=== PATIENT | male | born 1980 | race Caucasian/White ===

== ENCOUNTER → 2019-04-02 17:51 | Outpatient (CLI) | payer OTHER, SELFPAY ==
--- NOTE | 2019-04-02 | DI.MRI.S_ITS ---
PROCEDURE: MR KNEE RT WO CON INDICATIONS: Right knee pain and instability TECHNIQUE: Noncontrast sagittal PD fast spin echo and T2 fast spin echo with fat saturation, sagittal 3-D FLASH with fat saturation; coronal T1 spin echo and PD fast spin echo with fat saturation, and axial PD fast spin echo with fat saturation through the knee. COMPARISON: None. FINDINGS: Image quality: Excellent. Menisci: There is minimal amorphous high signal intensity within the medial meniscal body and posterior horn, without articular surface extension, indicating meniscal degeneration. There is moderate linear branching T2 signal intensity within the lateral meniscal body and posterior horn, without definite articular surface extension. Cruciate ligaments: The anterior and posterior cruciate ligaments appear intact. Medial structures: The medial collateral ligament appears intact. Visualized portions of the pes anserinus tendons appear normal. No abnormal bursal fluid. Lateral structures: The lateral collateral ligament, long and short heads of the biceps femoris tendon appear intact. The popliteus tendon appears normal. Iliotibial band appears normal. Anterior structures: The quadriceps and patellar tendons appear intact. Patellar alignment is normal. No femoral trochlear dysplasia or ventral trochlear prominence. No edema in the infrapatellar fat pad. Bones and cartilage: No bone marrow contusions or fractures. Mild diffuse articular cartilage loss overlies the weightbearing aspects of the medial femoral condyle and medial tibial plateau. There is a full thickness articular cartilage defect overlying the central aspect of the medial femoral trochlea, measuring 17 mm craniocaudal by 5 mm transverse. There is mild underlying ill-defined marrow edema within the medial femoral condyle. Joint space: There is a small knee joint effusion. No Leger's cyst. An intra-articular loose body weight within the inferior patellofemoral compartment is present, measuring roughly 7 mm, with signal characteristics suggestive of a chondral fragment. Normal appearing synovial plicae are incidentally noted. IMPRESSION: 1. Focal full-thickness articular cartilage defect overlying the femoral trochlea, associated with an intra-articular loose body which appears to represent a chondral fragment. Small knee joint effusion. 2. Intrameniscal high signal intensity within the lateral meniscus, without convincing evidence for articular surface extension to indicate tear. If there is high clinical suspicion for meniscal tear, arthroscopy is recommended for further assessment. Dictated by: Selvin Roman M.D. on 04/03/2019 at 9:43 Approved by: Selvin Roman M.D. on 04/03/2019 at 9:57
== END ==
PROVIDERS: PCP Preventive Medicine Public Health & General Preventive Medicine; Visit Provider Preventive Medicine Public Health & General Preventive Medicine
DX: M25.561 Pain in right knee (principal); M25.461 Effusion, right knee; M23.41 Loose body in knee, right knee
CPT/HCPCS: 73721

== ENCOUNTER → 2019-07-19 10:06 | Outpatient (CLI) | payer OTHER, SELFPAY ==
[2019-07-19 10:55] LABS: Add Manual Diff / Slide Review NO; Basophils Absolute Auto 0 /uL (0-100); Basophils Percent Auto 0.5 % (0-2); Eosinophils Absolute Auto 100 /uL (0-450); Eosinophils Percent Auto 1.8 % (2-4); Hematocrit 44.2 % (41-53); Hemoglobin 15.1 g/dL (13.5-17.5); Lymphocytes Absolute Auto 1700 /uL (1100-4500); Lymphocytes Percent Auto 27.1 % (25-40); Mean Corpuscular HGB Conc 34.1 % (30-36); Mean Corpuscular Hemoglobin 30.1 PG (26-34); Mean Corpuscular Volume 88.3 fL (80-100); Monocytes Absolute Auto 500 /uL (0-900); Monocytes Percent Auto 7.2 % (3-14); Neutrophils Absolute Auto 4100 /uL (1500-7000); Neutrophils Percent Auto 63.4 % (50-75); Platelet Count 265 X10^3/uL (150-400); Red Blood Cell Count 5.01 X10^6/uL (4.5-5.9); Red Cell Distribution Width 13.2 % (11.6-14.8); White Blood Cell Count 6.4 X10^3/uL (4.5-11.0)
[2019-07-19 11:40] LABS: Alanine Aminotransferase 34 IU/L (<50); Albumin 4.3 g/dL (3.5-5.0); Albumin Globulin Ratio 1.4 (1.0-2.8); Alkaline Phosphatase 111 U/L (38-126); Aspartate Aminotransferase 40 IU/L (17-59); Bilirubin Total 0.5 mg/dL (0.2-1.3); Blood Urea Nitrogen 18 mg/dL (9-20); Calcium 9.8 mg/dL (8.4-10.2); Carbon Dioxide 27 mmol/L (22-32); Chloride 106 mmol/L (98-107); Estimated Glomerular Filt Rate > 60.0 mL/min (>60); Globulin 3.1 g/dL (1.7-4.1); Glucose 111 mg/dL (70-100); HEMOLYSIS < 15 (0-50); Magnesium 2.2 mg/dL (1.6-2.3); Sodium 143 mmol/L (137-145); Total Protein 7.4 g/dL (6.3-8.2)
[2019-07-19 11:46] LABS: Potassium 5.4 mmol/L (3.4-5.1)
== END ==
PROVIDERS: PCP Preventive Medicine Public Health & General Preventive Medicine; Referring Provider Internal Medicine; Visit Provider Internal Medicine
DX: R00.2 Palpitations (principal)
CPT/HCPCS: 36415; 80053; 83735; 85025

== ENCOUNTER → 2019-08-12 16:36 | Outpatient (CLI) | payer OTHER, SELFPAY ==
[2019-08-12 18:26] LABS: BUN Creatinine Ratio 16.7 (6-22); Blood Urea Nitrogen 18 mg/dL (9-20); Calcium 9.8 mg/dL (8.4-10.2); Carbon Dioxide 29 mmol/L (22-32); Chloride 102 mmol/L (98-107); Estimated Glomerular Filt Rate > 60.0 mL/min (>60); Glucose 114 mg/dL (70-100); HEMOLYSIS < 15 (0-50); Potassium 4.3 mmol/L (3.4-5.1); Sodium 139 mmol/L (137-145)
[2019-08-12 18:42] LABS: Free T4, Direct Thyroxine 1.17 ng/dL (0.78-2.19)
[2019-08-12 18:56] LABS: Thyroid Stimulating Hormone 2.78 uIU/mL (0.47-4.68)
== END ==
PROVIDERS: PCP Preventive Medicine Public Health & General Preventive Medicine; Referring Provider Internal Medicine; Visit Provider Internal Medicine
DX: R00.2 Palpitations (principal)
CPT/HCPCS: 36415; 80048; 84439; 84443

== ENCOUNTER 2019-09-23 20:24 | Emergency (ER) | payer OTHER, SELFPAY ==
[2019-09-23 20:32] VITALS: BP 153/79; PULSE 70; RESP 16; O2SAT 99; BMI 29.2
--- NOTE | 2019-09-23 20:35 | DI.RAD.S_ITS ---
PROCEDURE: XR CHEST 1V INDICATIONS: chest pain TECHNIQUE: One view of the chest was acquired. COMPARISON: None. FINDINGS: Surgical changes and devices: None. Lungs and pleura: Lungs are clear. No pleural effusions or pneumothorax. Mediastinum: Mediastinal contours appear normal. Heart size is normal. Bones and chest wall: No suspicious bony lesions. Overlying soft tissues appear unremarkable. IMPRESSION: No acute disease Dictated by: Christian Saucedo M.D. on 09/23/2019 at 21:02 Approved by: Christian Saucedo M.D. on 09/23/2019 at 21:02
[2019-09-23 20:56] LABS: Add Manual Diff / Slide Review NO; Basophils Absolute Auto 100 /uL (0-100); Basophils Percent Auto 1.4 % (0-2); Eosinophils Absolute Auto 200 /uL (0-450); Eosinophils Percent Auto 2.3 % (2-4); Hematocrit 43.2 % (41-53); Hemoglobin 15.2 g/dL (13.5-17.5); Lymphocytes Absolute Auto 2800 /uL (1100-4500); Lymphocytes Percent Auto 40.3 % (25-40); Mean Corpuscular HGB Conc 35.2 % (30-36); Mean Corpuscular Hemoglobin 30.9 PG (26-34); Mean Corpuscular Volume 87.7 fL (80-100); Monocytes Absolute Auto 500 /uL (0-900); Neutrophils Absolute Auto 3300 /uL (1500-7000); Platelet Count 288 X10^3/uL (150-400); Red Blood Cell Count 4.93 X10^6/uL (4.5-5.9); Red Cell Distribution Width 14.3 % (11.6-14.8); White Blood Cell Count 6.8 X10^3/uL (4.5-11.0)
[2019-09-23 20:58] LABS: INR 0.9 (0.9-1.3); Prothrombin Time 10.6 SECONDS (10.1-12.7)
[2019-09-23 21:00] LABS: PTT Partial Thromboplastin Tim 37 SECONDS (26.4-36.2)
[2019-09-23 21:02] LABS: Alanine Aminotransferase 26 IU/L (<50); Albumin 4.3 g/dL (3.5-5.0); Albumin Globulin Ratio 1.2 (1.0-2.8); Alkaline Phosphatase 87 U/L (38-126); Aspartate Aminotransferase 33 IU/L (17-59); BUN Creatinine Ratio 17.3 (6-22); Bilirubin Total 0.5 mg/dL (0.2-1.3); Blood Urea Nitrogen 17 mg/dL (9-20); Calcium 9.7 mg/dL (8.4-10.2); Carbon Dioxide 28 mmol/L (22-32); Chloride 103 mmol/L (98-107); Creatine Kinase 102 U/L (55-170); Estimated Glomerular Filt Rate > 60.0 mL/min (>60); Globulin 3.5 g/dL (1.7-4.1); Glucose 95 mg/dL (70-100); Lipase 59 U/L (23-300); Sodium 138 mmol/L (137-145); Total Protein 7.8 g/dL (6.3-8.2)
[2019-09-23 21:04] LABS: HEMOLYSIS 81 (0-50); Potassium 4.4 mmol/L (3.4-5.1)
[2019-09-23 21:14] LABS: Troponin I < 0.012 ng/mL (0.01-0.034)
[2019-09-23 21:18] LABS: CKMB % Relative Index 0.4 % (1.5-5.0); Creatine Kinase MB 0.41 ng/mL (<2.37)
[2019-09-23 21:30] VITALS: BP 124/80; PULSE 62; O2SAT 99
[2019-09-23 21:37] LABS: T4 Total Thyroxine 6.95 ug/dL (5.5-11.0)
--- NOTE | 2019-09-23 22:12 | ED.CHESTPAIN ---
HPI - Chest Pain General Chief Complaint: Chest Pain Stated Complaint: Chest palpitations Time Seen by Provider: 09/23/19 20:26 Source: patient and family Mode of arrival: Ambulatory Limitations: no limitations History of Present Illness HPI narrative: 39-year-old male nonsmoker with history of palpitations presents with a chief complaint of increasing frequency and severity of palpitations over the past 3 days. He states he has had extensive workups including the use of Holter monitors, ZIO patch, echocardiogram among others. He denies any dietary change or new medications. He denies any significant alcohol, nicotine or caffeine but does state he has been under increased stress due to the coronavirus pandemic and has not been sleeping as well and has had more responsibilities at home. He denies recent travel, fever or chills. He has no chest pain and denies any syncope, nausea, vomiting or other. He denies any neurologic symptoms such as numbness, tingling or weakness. He does state that he seems to notice the palpitations more when sitting than during activity. MD complaint: other Onset (ago): day(s) Duration: intermittent Onset: during rest Relieving factors: nothing Exacerbating factors: nothing Associated symptoms: palpitations Treatments prior to arrival chest pain: none Review of Systems Constitutional Constitutional: Denies chills, Denies fatigue, Denies fever(s), Denies frequent falls, Denies lethargy and Denies weakness Eyes Eyes: Denies change in vision, Denies eye discharge, Denies irritation and Denies loss of vision ENT Ears, Nose, Mouth, and Throat: Denies change in voice, Denies dizziness, Denies neck pain, Denies sore throat and Denies throat swelling Cardiovascular Cardiovascular: Denies chest pain, Denies irregular heart rhythm, Denies lightheadedness, Reports palpitations, Denies dyspnea, Denies dyspnea on exertion and Denies orthopnea Respiratory Respiratory: Denies cough, Denies dyspnea, Denies dyspnea on exertion and Denies wheezing Gastrointestinal Gastrointestinal: Denies abdominal pain, Denies change in bowel habits, Denies diarrhea, Denies nausea and Denies vomiting Genitourinary Genitourinary: Denies hematuria, Denies flank pain, Denies urinary incontinence and Denies urinary urgency Musculoskeletal Musculoskeletal: Denies back pain, Denies muscle weakness, Denies neck pain, Denies numbness and Denies tingling Integumentary/Breasts Skin/Breast: Denies pruritus, Denies erythema, Denies rash and Denies wounds Neurologic Neurologic: Denies behavioral changes, Denies confusion, Denies dizziness, Denies frequent falls, Denies loss of vision, Denies numbness, Denies tingling and Denies weakness Psychiatric Psychiatric: Denies anxiety, Denies behavioral changes, Denies confusion, Denies depression, Denies homicidal ideation and Denies suicidal ideation Endocrine Endocrine: Denies fatigue, Denies flushing and Reports palpitations Hematologic/Lymphatic Hematologic/Lymphatic: Denies easy bruising Allergic/Immunologic Allergic/Immunologic: Denies urticaria, Denies throat swelling and Denies wheezing Patient History alcohol intake frequency: holidays/special occasions only Substance Use Type: does not use Exam Narrative Exam Narrative: GENERAL: [39] year old patient appears stated age. Well-nourished, well-developed patient, in mild distress. HEAD: Atraumatic. Normocephalic. EYES: Pupils equal round and reactive. Extraocular motions intact. No scleral icterus. No injection or drainage. ENT: Nose without bleeding, purulent drainage. Throat without erythema, tonsillar hypertrophy or exudate. Airway patent. NECK: Trachea midline. Non tender CARDIOVASCULAR: Regular rate and rhythm without murmurs, gallops, or rubs. RESPIRATORY: Clear to auscultation. Breath sounds equal bilaterally. No wheezes, rales, or rhonchi. GASTROINTESTINAL: Abdomen soft, non-tender, nondistended. EXTREMITIES: No edema or joint tenderness. BACK: Nontender without deformity or crepitance. No flank tenderness. NEURO: AOx3. SKIN: No rash or erythema of visible areas Initial Vital Signs Initial Vital Signs: Vital Signs Pulse Rate 70 09/23/19 20:32 Respiratory Rate 16 09/23/19 20:32 Blood Pressure 153/79 H 09/23/19 20:32 Pulse Oximetry 99 09/23/19 20:32 Course Orders Ordered: ED Orders 09/23/19 20:27 EKG-12 Lead Stat 09/23/19 20:35 XR chest 1V Stat 09/23/19 20:38 Complete Blood Count AUTO DIFF Stat Comprehensive Metabolic Panel Stat Lipase Stat Partial Thromboplastin Time Stat Prothrombin Time INR Stat T4 Total Thyroxine Stat Thyroid Stimulating Hormone Stat Troponin & CK Cardiac Panel Stat Vital Signs Vital signs: Vital Signs - 8 hr 09/23/19 20:32 09/23/19 21:30 Pulse Rate 70 62 Respiratory Rate 16 Blood Pressure 153/79 H Blood Pressure [Left Arm] 124/80 Pulse Oximetry 99 99 MDM - Chest Pain Lab Data Result diagrams: 09/23/19 20:38 09/23/19 20:38 Labs: Lab Results 09/23/19 09/23/19 09/23/19 Range/Units 20:38 20:38 20:38 WBC 6.8 (4.5-11.0) X10^3/uL RBC 4.93 (4.5-5.9) X10^6/uL Hgb 15.2 (13.5-17.5) g/dL Hct 43.2 (41-53) % MCV 87.7 (80-100) fL MCH 30.9 (26-34) PG MCHC 35.2 (30-36) % RDW 14.3 (11.6-14.8) % Plt Count 288 (150-400) X10^3/uL Neut % (Auto) 48.0 L (50-75) % Lymph % (Auto) 40.3 H (25-40) % [place] % (Auto) 8.0 (3-14) % Eos % (Auto) 2.3 (2-4) % Baso % (Auto) 1.4 (0-2) % Neut # (Auto) 3300 (9400-3715) /uL Lymph # (Auto) 2800 (4200-1322) /uL [place] # (Auto) 500 (0-900) /uL Eos # (Auto) 200 (0-450) /uL Baso # (Auto) 100 (0-100) /uL PT 10.6 (10.1-12.7) SECONDS INR 0.9 (0.9-1.3) APTT 37 H (26.4-36.2) SECONDS Sodium 138 (137-145) mmol/L Potassium 4.4 (3.4-5.1) mmol/L Chloride 103 (98-107) mmol/L Carbon Dioxide 28 (22-32) mmol/L BUN 17 (9-20) mg/dL Creatinine 0.98 (0.66-1.25) mg/dL Estimated GFR > 60.0 (>60) mL/min BUN/Creatinine Ratio 17.3 (6-22) Glucose 95 (70-100) mg/dL Calcium 9.7 (8.4-10.2) mg/dL Total Bilirubin 0.5 (0.2-1.3) mg/dL AST 33 (17-59) IU/L ALT 26 (<50) IU/L Alkaline Phosphatase 87 (38-126) U/L Total Creatine Kinase 102 (55-170) U/L CK-MB (CK-2) 0.41 (<2.37) ng/mL CK-MB (CK-2) Rel Index 0.4 L (1.5-5.0) % Troponin I < 0.012 (0.01-0.034) ng/mL Total Protein 7.8 (6.3-8.2) g/dL Albumin 4.3 (3.5-5.0) g/dL Globulin 3.5 (1.7-4.1) g/dL Albumin/Globulin Ratio 1.2 (1.0-2.8) Lipase 59 (23-300) U/L TSH (0.47-4.68) uIU/mL Thyroxine (T4) (5.5-11.0) ug/dL 09/23/19 09/23/19 Range/Units 20:38 20:38 WBC (4.5-11.0) X10^3/uL RBC (4.5-5.9) X10^6/uL Hgb (13.5-17.5) g/dL Hct (41-53) % MCV (80-100) fL MCH (26-34) PG MCHC (30-36) % RDW (11.6-14.8) % Plt Count (150-400) X10^3/uL Neut % (Auto) (50-75) % Lymph % (Auto) (25-40) % [place] % (Auto) (3-14) % Eos % (Auto) (2-4) % Baso % (Auto) (0-2) % Neut # (Auto) (3506-9475) /uL Lymph # (Auto) (1472-7904) /uL [place] # (Auto) (0-900) /uL Eos # (Auto) (0-450) /uL Baso # (Auto) (0-100) /uL PT (10.1-12.7) SECONDS INR (0.9-1.3) APTT (26.4-36.2) SECONDS Sodium (137-145) mmol/L Potassium (3.4-5.1) mmol/L Chloride (98-107) mmol/L Carbon Dioxide (22-32) mmol/L BUN (9-20) mg/dL Creatinine (0.66-1.25) mg/dL Estimated GFR (>60) mL/min BUN/Creatinine Ratio (6-22) Glucose (70-100) mg/dL Calcium (8.4-10.2) mg/dL Total Bilirubin (0.2-1.3) mg/dL AST (17-59) IU/L ALT (<50) IU/L Alkaline Phosphatase (38-126) U/L Total Creatine Kinase (55-170) U/L CK-MB (CK-2) (<2.37) ng/mL CK-MB (CK-2) Rel Index (1.5-5.0) % Troponin I (0.01-0.034) ng/mL Total Protein (6.3-8.2) g/dL Albumin (3.5-5.0) g/dL Globulin (1.7-4.1) g/dL Albumin/Globulin Ratio (1.0-2.8) Lipase (23-300) U/L TSH 3.90 (0.47-4.68) uIU/mL Thyroxine (T4) 6.95 (5.5-11.0) ug/dL Discharge Plan Departure Patient Disposition: Home Clinical Impression: Heart palpitations Discharge Date/Time: 09/23/19 22:14 Instructions: DI for Palpitations Activity Restrictions/Additional Instructions: *You have been diagnosed with [palpitations] *What to do: * continue to take medications as directed *Follow up with your primary care provider in 2-3 days, call for an appointment. Let them know you were seen in the Emergency Department and that we ask that you be seen in follow up *Return to ER if you should have any new, worsening or concerning symptoms, such as [ ] Referrals: Iraj Tse [Primary Care Provider] -
== END 2019-09-23 22:14 | disposition home or self-care (01) ==
PROVIDERS: Emergency Provider Emergency Medicine; PCP Preventive Medicine Public Health & General Preventive Medicine; Referring Provider Internal Medicine
DX: R00.2 Palpitations (principal); R07.9 Chest pain, unspecified
CPT/HCPCS: 36415; 71045; 80053; 82550; 82553; 83690; 84436; 84443; 84484; 85025; 85610; 85730; 93005; 93010; 99284

== ENCOUNTER → 2019-10-26 09:16 | Outpatient (CLI) | payer OTHER, SELFPAY ==
[2019-10-26 10:45] LABS: Add Manual Diff / Slide Review NO; Basophils Absolute Auto 100 /uL (0-100); Basophils Percent Auto 0.5 % (0-2); Eosinophils Absolute Auto 100 /uL (0-450); Hemoglobin 14.6 g/dL (13.5-17.5); Lymphocytes Absolute Auto 4000 /uL (1100-4500); Lymphocytes Percent Auto 35.9 % (25-40); Mean Corpuscular HGB Conc 34.9 % (30-36); Mean Corpuscular Hemoglobin 31.1 PG (26-34); Mean Corpuscular Volume 89.3 fL (80-100); Monocytes Absolute Auto 700 /uL (0-900); Monocytes Percent Auto 6.1 % (3-14); Neutrophils Absolute Auto 6300 /uL (1500-7000); Neutrophils Percent Auto 56.5 % (50-75); Platelet Count 298 X10^3/uL (150-400); Red Cell Distribution Width 15.3 % (11.6-14.8); White Blood Cell Count 11.2 X10^3/uL (4.5-11.0)
[2019-10-26 11:42] LABS: Erythrocyte Sedimentation Rate 5 MM/HR (0-15)
[2019-10-26 11:43] LABS: Alanine Aminotransferase 31 IU/L (<50); Albumin 4.5 g/dL (3.5-5.0); Albumin Globulin Ratio 1.4 (1.0-2.8); Alkaline Phosphatase 82 U/L (38-126); Aspartate Aminotransferase 26 IU/L (17-59); BUN Creatinine Ratio 23.3 (6-22); Bilirubin Total 0.8 mg/dL (0.2-1.3); Blood Urea Nitrogen 24 mg/dL (9-20); Calcium 9.7 mg/dL (8.4-10.2); Carbon Dioxide 32 mmol/L (22-32); Chloride 102 mmol/L (98-107); Estimated Glomerular Filt Rate > 60.0 mL/min (>60); Globulin 3.3 g/dL (1.7-4.1); Glucose 97 mg/dL (70-100); HEMOLYSIS < 15 (0-50); Potassium 4.1 mmol/L (3.4-5.1); Sodium 142 mmol/L (137-145); Total Protein 7.8 g/dL (6.3-8.2)
[2019-10-26 11:47] LABS: High Sensitivity CRP - Cardiac 1.3 mg/L (1.0-3.0)
== END ==
PROVIDERS: PCP Preventive Medicine Public Health & General Preventive Medicine; Referring Provider Internal Medicine Rheumatology; Visit Provider Internal Medicine Rheumatology
DX: L40.50 Arthropathic psoriasis, unspecified (principal); Z79.899 Other long term (current) drug therapy
CPT/HCPCS: 36415; 80053; 85025; 85651; 86140

== ENCOUNTER → 2020-04-21 15:45 | Outpatient (CLI) | payer OTHER, SELFPAY ==
--- NOTE | 2020-04-21 | DI.ECHO.S_ITS ---
Version: 1 Study ID: [id number] [place] [id number] Name: DES KIRKPATRICK Study Date: 04/21/2020, 4: 17 PM : 1980 BP: 136 / 98 mmHg Gender: Male Height: 71 in Age: 39 Years Weight: 215 lb BSA: 2.17 mA? Ordering: YOUSUF SANTOS Referring: YOUSUF SANTOS Clinician: Kajal Harris Reason For Study: ENCOUNTER FOR GENERAL ADULT MEDICAL EXAMINATION History: Summary Statements Normal sinus rhythm. Normal LV size, wall thickness, wall motion and LV systolic function. EF is 60-65% Normal chamber sizes. No significant valvular abnormalities. No prior study available for comparison. Procedure: A two-dimensional transthoracic echocardiogram with color flow and Doppler was performed. The study quality was technically adequate. There is no prior echocardiogram noted for this patient. The patient was in sinus rhythm with heart rates between 63-74 bpm during the exam. Left Ventricle: Diastolic parameters suggest probable normal left ventricular diastolic function and normal filling pressures. The ejection fraction is estimated to be 60-65%. The left ventricle is normal in size and wall thickness. Right Ventricle: The right ventricle is normal in size and function. Atria: There is no Doppler evidence for an interatrial shunt. The left atrial size is normal. Right atrial size is normal. Mitral Valve: There is trace mitral regurgitation. The mitral valve is normal in structure and function. Aortic Valve: No aortic regurgitation is present. There is no aortic valve stenosis. The aortic valve is trileaflet. The aortic valve opens well. Tricuspid Valve: There is a trace or physiologic amount of tricuspid regurgitation. The tricuspid valve is normal in structure and function. Pulmonic Valve: There is no pulmonic valvular regurgitation. The pulmonic valve leaflets are thin and pliable; valve motion is normal. Great Vessels: The ascending aorta is at the upper limits of normal in size. The aortic root is normal size. The IVC is of normal diameter and collapses greater than 50% with a sniff. This suggests a low right atrial pressure of 3 mm Hg. Pericardium/ Pleura: There is no pericardial effusion. There is no pleural effusion. 2D and M-Mode Measurements and Calculations LVIDd: 5.3 cm AoV Openin.13 cm LVIDs: 3.8 cm LVOT diam: 2.42 cm IVSd: 0.96 cm Ao root diam: 3.2 cm LVPWd: 0.82 cm asc Aorta Diam: 3.5 cm LV myrick. diameter/BSA (cm/m^2): 2.43 Ao Arch Diam (Prox Trans): 2.8 cm LV sys. diameter/BSA (cm/m^2): 1.74 EPSS: 0.70 cm RVD1 (basal): 3.8 cm IVC diam: 1.68 cm TAPSE: 2.04 cm LA A4 area: 16.0 dumpster driver? RA area: 16.0 dumpster driver? LA A2 area: 23.3 dumpster driver? RA long axis: 4.6 cm LA length (vol): 5.1 cm RA vol: 47.2 ml LA vol: 62.0 ml RA : 21.7 ml/mA? LA vol index: 28.5 ml/mA? Doppler Measurements and Calculations Ao V2 max: 127.3 cm/sec LVOT Max Barrie: 103.1 cm/sec Ao V2 mean: 92.4 cm/sec LV V1 max P.3 mmHg Ao V2 VTI: 31.3 cm LV V1 VTI: 22.6 cm Ao max P.5 mmHg Ao mean P.8 mmHg FAINA(I,D): 3.3 dumpster driver? FAINA(V,D): 3.7 dumpster driver? FAINA indexed to BSA (cm^2/m^2): 1.52 sev ratio: 0.72 MV E max barrie: 76.5 cm/sec MV dec time: 0.17 sec MV A max barrie: 58.6 cm/sec MV E/A: 1.30 Med Peak E' Barrie: 9.0 cm/sec Lat Peak E' Barrie: 10.7 cm/sec E/e' average: 7.8 PA V2 max: 81.7 cm/sec PA mean P.34 mmHg Electronically signed by: Annabettye Henderson M.D. 04/22/2020, 1: 57 AM
== END ==
PROVIDERS: PCP Preventive Medicine Public Health & General Preventive Medicine; Referring Provider Physician Assistant; Visit Provider Physician Assistant
DX: Z00.00 Encounter for general adult medical examination without abnormal findings (principal)
CPT/HCPCS: 93306

== ENCOUNTER → 2020-05-15 15:57 | Outpatient (CLI) | payer OTHER, SELFPAY ==
[2020-05-15 17:08] LABS: Add Manual Diff / Slide Review NO; Basophils Absolute Auto 100 /uL (0-100); Basophils Percent Auto 0.7 % (0-2); Eosinophils Absolute Auto 100 /uL (0-450); Eosinophils Percent Auto 1.5 % (2-4); Hematocrit 43.3 % (41-53); Lymphocytes Absolute Auto 2000 /uL (1100-4500); Lymphocytes Percent Auto 28.1 % (25-40); Mean Corpuscular HGB Conc 34.7 % (30-36); Mean Corpuscular Hemoglobin 31.4 PG (26-34); Mean Corpuscular Volume 90.5 fL (80-100); Monocytes Absolute Auto 300 /uL (0-900); Monocytes Percent Auto 4.3 % (3-14); Neutrophils Absolute Auto 4800 /uL (1500-7000); Neutrophils Percent Auto 65.4 % (50-75); Platelet Count 283 X10^3/uL (150-400); Red Blood Cell Count 4.78 X10^6/uL (4.5-5.9); Red Cell Distribution Width 14.2 % (11.6-14.8); White Blood Cell Count 7.3 X10^3/uL (4.5-11.0)
[2020-05-15 17:52] LABS: Alanine Aminotransferase 39 IU/L (<50); Albumin 4.4 g/dL (3.5-5.0); Albumin Globulin Ratio 1.2 (1.0-2.8); Alkaline Phosphatase 92 U/L (38-126); Aspartate Aminotransferase 42 IU/L (17-59); BUN Creatinine Ratio 14.1 (6-22); Bilirubin Total 0.7 mg/dL (0.2-1.3); Blood Urea Nitrogen 14 mg/dL (9-20); C-Reactive Protein Quant 0.7 mg/dL (<1.0); Calcium 9.4 mg/dL (8.4-10.2); Carbon Dioxide 29 mmol/L (22-32); Chloride 103 mmol/L (98-107); Estimated Glomerular Filt Rate > 60.0 mL/min (>60); Globulin 3.6 g/dL (1.7-4.1); Glucose 93 mg/dL (70-100); Sodium 135 mmol/L (137-145)
[2020-05-15 17:57] LABS: HEMOLYSIS 67 (0-50); Potassium 4.6 mmol/L (3.4-5.1)
== END ==
PROVIDERS: PCP Preventive Medicine Public Health & General Preventive Medicine; Referring Provider Internal Medicine Rheumatology; Visit Provider Internal Medicine Rheumatology
DX: L40.50 Arthropathic psoriasis, unspecified (principal); Z79.899 Other long term (current) drug therapy
CPT/HCPCS: 36415; 80053; 85025; 86140

== ENCOUNTER → 2020-12-08 08:01 | Outpatient (CLI) | payer OTHER, SELFPAY ==
[2020-12-08 09:41] LABS: Add Manual Diff / Slide Review NO; Basophils Absolute Auto 100 /uL (0-100); Basophils Percent Auto 1.1 % (0-2); Eosinophils Absolute Auto 100 /uL (0-450); Eosinophils Percent Auto 1.9 % (2-4); Hematocrit 44.1 % (41-53); Hemoglobin 14.9 g/dL (13.5-17.5); Lymphocytes Absolute Auto 1800 /uL (1100-4500); Lymphocytes Percent Auto 27.5 % (25-40); Mean Corpuscular HGB Conc 33.7 % (30-36); Mean Corpuscular Hemoglobin 31.1 PG (26-34); Mean Corpuscular Volume 92.2 fL (80-100); Monocytes Absolute Auto 400 /uL (0-900); Monocytes Percent Auto 6.9 % (3-14); Neutrophils Absolute Auto 4000 /uL (1500-7000); Neutrophils Percent Auto 62.6 % (50-75); Platelet Count 241 X10^3/uL (150-400); Red Blood Cell Count 4.79 X10^6/uL (4.5-5.9); Red Cell Distribution Width 14.7 % (11.6-14.8); White Blood Cell Count 6.4 X10^3/uL (4.5-11.0)
[2020-12-08 10:55] LABS: Alanine Aminotransferase 33 IU/L (<50); Albumin 4.1 g/dL (3.5-5.0); Albumin Globulin Ratio 1.2 (1.0-2.8); Alkaline Phosphatase 104 U/L (38-126); Aspartate Aminotransferase 36 IU/L (17-59); BUN Creatinine Ratio 18.4 (6-22); Bilirubin Total 0.5 mg/dL (0.2-1.3); Blood Urea Nitrogen 19 mg/dL (9-20); Calcium 9.6 mg/dL (8.4-10.2); Carbon Dioxide 26 mmol/L (22-32); Chloride 109 mmol/L (98-107); Estimated Glomerular Filt Rate > 60.0 mL/min (>60); Globulin 3.3 g/dL (1.7-4.1); Glucose 114 mg/dL (70-100); HEMOLYSIS < 15 (0-50); Potassium 4.9 mmol/L (3.4-5.1); Sodium 143 mmol/L (137-145); Total Protein 7.4 g/dL (6.3-8.2)
== END ==
PROVIDERS: PCP Preventive Medicine Public Health & General Preventive Medicine; Referring Provider Internal Medicine Rheumatology; Visit Provider Internal Medicine Rheumatology
DX: L40.50 Arthropathic psoriasis, unspecified (principal); Z79.899 Other long term (current) drug therapy
CPT/HCPCS: 36415; 80053; 85025; 86140

== ENCOUNTER 2021-01-10 10:02 | Emergency (ER) | payer OTHER, SELFPAY ==
[2021-01-10 10:19] VITALS: BP 137/79; PULSE 59; RESP 14; TEMP 35.9; O2SAT 96; BMI 29.1
--- NOTE | 2021-01-10 11:03 | DI.RAD.S_ITS ---
PROCEDURE: XR FOOT LT MIN 3V INDICATIONS: poss fx TECHNIQUE: 3 views of the foot were acquired. COMPARISON: [facility] Outside Film, RG, FOOT COMP MIN 3VW (LT), 08/15/2019, 9:01. FINDINGS: Bones: No fractures or dislocations. Moderate hallux valgus deformity at the 1st through 4th MTP joints. Periarticular erosive changes at the 5th metatarsal head and MTP joint. Arthritic changes and subluxation at the 2nd through 5th PIP joints. No suspicious bony lesions. Soft tissues: No tibiotalar joint effusion. Enthesopathy at the Achilles tendon insertion. Achilles tendon appears normal. IMPRESSION: 1. No visible acute fractures. 2. Arthritic changes at the MTP and PIP joint suggesting rheumatoid arthritis, gout, or connective tissue disease. 3. Periarticular erosions slightly more pronounced at the 5th metatarsal head compared to the prior study. Dictated by: Beatris Rosado M.D. on 01/10/2021 at 11:15 Approved by: Beatris Rosado M.D. on 01/10/2021 at 11:20
[2021-01-10 12:46] VITALS: BP 144/78; PULSE 62; O2SAT 98
--- NOTE | 2021-01-10 13:24 | ED.LOWEXIN ---
HPI - Extremity Injury (Lower) General Chief Complaint: Extremity Injury, Lower Stated Complaint: left foot and toe damage from fall Time Seen by Provider: 01/10/21 13:16 Source: patient Mode of arrival: Ambulatory Limitations: no limitations History of Present Illness HPI Narrative: Patient is a 40-year-old male who presents with left foot injury he has a history of psoriatic arthritis and he is on Humira. His foot and toes got stuck in his yet in the bathtub last evening. He ripped part of his left middle toe nail out. There is abrasion on that toe as well acute bleeding. His whole foot hurts in his unable set bear weight. No numbness or tingling. Related Data Previous Rx's Medication Instructions Recorded hydrocodone 5 mg-acetaminophen 325 1 tab PO Q6H PRN #10 tab 01/10/21 mg tablet Allergies Allergy/AdvReac Type Severity Reaction Status Date / Time No Known Drug Allergies Allergy Verified 01/10/21 10:23 Review of Systems Review of Systems Narrative: GENERAL: Denies chills,fever HEENT: Denies throat pain RESPIRATORY: Denies dyspnea, cough, wheezing CARDIOVASCULAR: Denies chest pain, palpitations GASTROINTESTINAL: Denies nausea, vomiting MUSCULOSKELETAL: See HPI SKIN: See HPI NEUROLOGIC: Denies weakness, dizziness, headache, numbness 8 point review of systems is negative except for those stated above and HPI Patient History Social History Smoking Status: Never smoker Smoking Status: Never smoker alcohol intake frequency: holidays/special occasions only Substance Use Type: does not use Exam Initial Vital Signs Initial Vital Signs: Vital Signs Temperature 96.6 F L 01/10/21 10:19 Pulse Rate 59 L 01/10/21 10:19 Respiratory Rate 14 01/10/21 10:19 Blood Pressure 137/79 01/10/21 10:19 Pulse Oximetry 96 01/10/21 10:19 GENERAL: Well-appearing, well-nourished and in no acute distress. CARDIOVASCULAR: peripheral pulses in tact, cap refill <2 sec RESPIRATORY: No respiratory distress, speaks in full sentences without difficulty EXTREMITIES: Normal range of motion, no clubbing or edema. Neurovascularly intact. Strong distal pedal pulse. No significant no lateral. NEUROLOGICAL: Cranial nerves II through XII grossly intact. Normal gait and speech. SKIN: Left foot middle toe toenail slightly pulled out from the cuticle region. Abrasion noted around the toenail as well. Contusion on middle 4th and 5th toes as well. Procedures Nerve Block Nerve Block 1: Local Anesthetic: lidocaine 1% Amount of anesthesia used (mL): 2 Side: left (Middle toe) Nerve Blocks: digital Patient Tolerated Procedure: Well Complications: none Course Orders Ordered: ED Orders 01/10/21 11:03 XR foot LT min 3V Stat Discontinued Medications Lidocaine HCl (Lidocaine 1% (Pf)) 2 ml SUBCUT NOW ONE Stop: 01/10/21 13:23 Last Admin: 01/10/21 13:27 Dose: 2 ml Documented by: POLLY Vital Signs Vital signs: Vital Signs - 8 hr 01/10/21 12:46 01/10/21 13:57 Pulse Rate 62 56 L Respiratory Rate 18 Blood Pressure 144/78 H 139/88 Pulse Oximetry 98 96 MDM - Extremity Injury (Lower) Imaging Data Extremity x-ray #1: Radiologist's Impression: PROCEDURE: XR FOOT LT MIN 3V INDICATIONS: poss fx TECHNIQUE: 3 views of the foot were acquired. COMPARISON: [facility] Outside Film, RG, FOOT COMP MIN 3VW (LT), 08/15/2019, 9:01. FINDINGS: Bones: No fractures or dislocations. Moderate hallux valgus deformity at the 1st through 4th MTP joints. Periarticular erosive changes at the 5th metatarsal head and MTP joint. Arthritic changes and subluxation at the 2nd through 5th PIP joints. No suspicious bony lesions. Soft tissues: No tibiotalar joint effusion. Enthesopathy at the Achilles tendon insertion. Achilles tendon appears normal. IMPRESSION: 1. No visible acute fractures. 2. Arthritic changes at the MTP and PIP joint suggesting rheumatoid arthritis, gout, or connective tissue disease. 3. Periarticular erosions slightly more pronounced at the 5th metatarsal head compared to the prior study. Dictated by: Beatris Rosado M.D. on 01/10/2021 at 11:15 Approved by: Beatris Rosado M.D. on 01/10/2021 at 11:2 MDM Narrative Medical decision making narrative: Patient's left middle toenail slightly avulsed out of the cuticle bed but easily replaced. No need for sutures. Contusion noted no fractures on x-ray. Discharge Plan Departure Patient Disposition: Home Clinical Impression: Sprain of third toe, left Instructions: Toe Sprain Activity Restrictions/Additional Instructions: *You have been diagnosed with left foot sprain *What to do: Where orthopedic shoe as needed for pain control. May change dressing tomorrow morning. Apply Neosporin is 1-2 times daily. *Continue to take medications as directed [place] 1 tablet every 6 hours if needed for pain--> SENT TO [facility] *Follow up with your primary care provider in 2-3 days *Return to ER if you should have increasing redness pain swelling or any new, worsening or concerning symptoms CONTROLLED SUBSTANCE DISCHARGE (Narcotoic/benzodiazepine/Flexeril/Phenergan) 1. You have been prescribed narcotic medications, it does have acetaminophen/Tylenol/paracetamol in it, DO NOT TAKE MORE THAN 4,00mg in 24 hours of Tylenol. TRAMADOL DOES NOT CONTAIN TYLENOL 2. Please understand that we cannot provide further refills of narcotics, benzodiazepines or controlled substances through the ED and her pain management will need to be through your provider. 3. While on these medications you cannot drive or operate heavy machinery. 4. You cannot sign legal documents or perform any duties such as this. 5. As long as you're taking opiate pain medications he should also be taking a stool softener such as Colace, Dulcolax, MiraLAX or prune juice, to help avoid constipation. Prescriptions: New hydrocodone-acetaminophen 5-325 mg tablet 1 tab PO Q6H PRN (Reason: pain) Qty: 10 RF: 0 Referrals: Iraj Tse MD [Primary Care Provider] -
[2021-01-10] MEDS: LIDOCAINE 1% (PF) 2 ML SUBCUT (13:27)
[2021-01-10 13:57] VITALS: BP 139/88; PULSE 56; RESP 18; O2SAT 96
== END 2021-01-10 13:57 | disposition home or self-care (01) ==
PROVIDERS: Emergency Provider Emergency Medicine; PCP Preventive Medicine Public Health & General Preventive Medicine
DX: S93.505A Unspecified sprain of left lesser toe(s), initial encounter (principal); X58.XXXA Exposure to other specified factors, initial encounter
CPT/HCPCS: 64450; 73630; 99283

== ENCOUNTER 2021-10-05 07:52 | Emergency (ER) | payer OTHER, SELFPAY ==
[2021-10-05 08:14] VITALS: BP 129/85; PULSE 102; RESP 18; TEMP 36.9; O2SAT 100; BMI 29.2
--- NOTE | 2021-10-05 08:40 | ED_ITS ---
HPI - Nausea/Vomiting/Diarrhea General Chief complaint: Nausea/Vomiting/Diarrhea Stated complaint: N/V/D - fever/chills, body aches Time Seen by Provider: 10/05/21 08:36 Source: patient Mode of arrival: Ambulatory History of Present Illness HPI Narrative: Patient here for nausea vomiting diarrhea fever and chills. Started last night. Sick contacts include and child. Rhinovirus positive in family member. No cough cold or congestion. No trouble breathing. Related Data Previous Rx's Medication Instructions Recorded hydrocodone 5 mg-acetaminophen 325 1 tab PO Q6H PRN pain #10 tabs 01/10/21 mg tablet ondansetron 4 mg disintegrating 4 mg PO Q8H PRN nausea and 10/05/21 tablet vomiting #10 tabs Allergies Allergy/AdvReac Type Severity Reaction Status Date / Time No Known Drug Allergies Allergy Verified 01/10/21 10:23 Review of Systems Review of Systems Narrative: GENERAL: Positive for chills, fatigue, malaise, fever, sweats. HEENT: Denies sinus pain, ear pain, sore throat RESPIRATORY: Denies dyspnea, cough CARDIOVASCULAR: Denies chest pain, palpitations GASTROINTESTINAL: Positive fornausea, vomiting, negative for abdominal pain : Denies dysuria, frequency, hematuria MUSCULOSKELETAL: denies muscle or bony pain SKIN: Denies rash, skin lesions NEUROLOGIC: Denies weakness, numbness ROS Unobtainable: All systems reviewed & are unremarkable except as noted in HPI and below Patient History Social History Smoking Status: Never smoker Smoking Status: Never smoker alcohol intake frequency: holidays/special occasions only Substance Use Type: does not use Exam Narrative Exam Narrative: GENERAL: in no distress, not toxic not dyspneic HEAD: Normocephalic. EYES: Pupils equal round No scleral icterus. ENT: Slightly dry lips and tongue NECK: Trachea midline. CARDIOVASCULAR: Regular rate and rhythm without murmurs RESPIRATORY: Clear to auscultation. Breath sounds equal bilaterally. No wheezes, rales, or rhonchi. GASTROINTESTINAL: Abdomen soft, non-tender no peritoneal signs, bowel sounds present. EXTREMITIES: No gross deformities. BACK: No flank tenderness. NEURO: AOx4. SKIN: Warm and slightly diaphoretic PSYCH: Not anxious, is cooperative Initial Vital Signs Initial Vital Signs: Vital Signs Temperature 98.5 F 10/05/21 08:14 Pulse Rate 102 H 10/05/21 08:14 Respiratory Rate 18 10/05/21 08:14 Blood Pressure 129/85 10/05/21 08:14 Pulse Oximetry 100 10/05/21 08:14 Oxygen Delivery Method 10/05/21 08:14 Course Course Course Narrative: No new issues during course of stay Orders Ordered: Discontinued Medications Sodium Chloride (Normal Saline 0.9%) 1,000 mls @ 1,000 mls/hr IV BOLUS ONE Stop: 10/05/21 09:36 Last Infusion: 10/05/21 11:09 Dose: 0 mls/hr Documented By: Admin: 10/05/21 09:01 Dose: 1,000 mls/hr Documented By: TREE Ondansetron HCl (Ondansetron 4 Mg/2 Ml Inj) 4 mg IV NOW ONE Stop: 10/05/21 08:38 Last Admin: 10/05/21 09:02 Dose: 4 mg Documented By: TREE Reevaluation(s) Reevaluation #1: Patient feels much better. IV fluids and Zofran given. Is tolerating water by mouth. No vomiting. Reviewed results with patient. No imaging indicated. No abdominal pain. Time: 11:18 Vital Signs Vital signs: Vital Signs - 8 hr 10/05/21 08:14 Temperature 98.5 F Pulse Rate 102 H Respiratory Rate 18 Blood Pressure 129/85 Pulse Oximetry 100 MDM - Nausea/Vomiting/Diarrhea Lab Data Result diagrams: 10/05/21 08:35 10/05/21 08:35 Labs: Lab Results 10/05/21 10/05/21 10/05/21 Range/Units 08:35 08:35 09:58 WBC 13.3 H (4.5-11.0) X10^3/uL RBC 5.03 (4.5-5.9) X10^6/uL Hgb 15.3 (13.5-17.5) g/dL Hct 44.2 (41-53) % MCV 87.8 (80-100) fL MCH 30.5 (26-34) PG MCHC 34.7 (30-36) % RDW 13.9 (11.6-14.8) % Plt Count 255 (150-400) X10^3/uL Neut % (Auto) 94.0 H (50-75) % Lymph % (Auto) 2.0 L (25-40) % [place] % (Auto) 3.3 (3-14) % Eos % (Auto) 0.4 L (2-4) % Baso % (Auto) 0.3 (0-2) % Neut # (Auto) 41475 H (8887-9391) /uL Lymph # (Auto) 300 L (4872-2794) /uL [place] # (Auto) 400 (0-900) /uL Eos # (Auto) 100 (0-450) /uL Baso # (Auto) 0 (0-100) /uL Sodium 139 (137-145) mmol/L Potassium 4.0 (3.4-5.1) mmol/L Chloride 106 (98-107) mmol/L Carbon Dioxide 24 (22-32) mmol/L BUN 17 (9-20) mg/dL Creatinine 1.03 (0.66-1.25) mg/dL Estimated GFR > 60 (>60) mL/min BUN/Creatinine Ratio 16.5 (6-22) Glucose 126 H (70-100) mg/dL Calcium 9.1 (8.4-10.2) mg/dL Total Bilirubin 1.1 (0.2-1.3) mg/dL AST 31 (17-59) IU/L ALT 24 (<50) IU/L Alkaline Phosphatase 104 (38-126) U/L Total Protein 8.9 H (6.3-8.2) g/dL Albumin 4.7 (3.5-5.0) g/dL Globulin 4.2 H (1.7-4.1) g/dL Albumin/Globulin Ratio 1.1 (1.0-2.8) Chlamy pneumoniae PCR Not detected (Not Detect) Adenovirus (PCR) Not detected (Not Detect) B. pertussis DNA (PCR) Not detected (Not Detecte) B.parapertussis DNA PCR Not detected (Not Detecte) Coronavirus OC43 (PCR) Not detected (Not Detect) Coronavirus HKU1 (PCR) Not detected (Not Detect) Coronavirus 229E (PCR) Not detected (Not Detect) SARS-CoV-2 (PCR) Not detected (Not Detecte) Coronavirus NL63 (PCR) Not detected (Not Detect) Human Metapneumovir PCR Not detected (Not Detect) Influenza Type A (PCR) Not detected (Not Detect) Influenza Type B (PCR) Not detected (Not Detect) M. pneumoniae (PCR) Not detected (Not Detect) Parainfluenza 1 (PCR) Not detected (Not Detect) Parainfluenza 2 (PCR) Not detected (Not Detect) Parainfluenza 3 (PCR) Not detected (Not Detect) Parainfluenza 4 (PCR) Not detected (Not Detect) RSV (PCR) Not detected (Not Detect) Entero/Rhino (PCR) Not detected (Not Detect) MDM Narrative Medical decision making narrative: Appropriate for discharge home. Likely viral syndrome although at this time viral panel is reassuring. May be false negative or to early to results as symptoms started last night. Patient has had family members with same symptoms. No CT scan imaging indicated this time. No abdominal pain. No fever here. Return precautions reviewed with him. He does have a family doctor to follow up with. Prescription for Zofran given. Discharge Plan Departure Patient Disposition: Home Clinical Impression: Acute vomiting Instructions: DI for Vomiting -- Adult Activity Restrictions/Additional Instructions: See family doctor this week for re-evaluation. Keep well hydrated. Return if worse if any questions or concerns. Prescription for nausea medication has been sent to your pharmacy. Prescriptions: New ondansetron 4 mg tablet,disintegrating 4 mg PO Q8H PRN (Reason: nausea and vomiting) Qty: 10 0RF No Action hydrocodone-acetaminophen 5-325 mg tablet 1 tab PO Q6H PRN (Reason: pain) Qty: 10 0RF Referrals: Iraj Tse MD [Primary Care Provider] -
[2021-10-05 08:43] LABS: Add Manual Diff / Slide Review NO; Basophils Absolute Auto 0 /uL (0-100); Basophils Percent Auto 0.3 % (0-2); Eosinophils Absolute Auto 100 /uL (0-450); Eosinophils Percent Auto 0.4 % (2-4); Hematocrit 44.2 % (41-53); Hemoglobin 15.3 g/dL (13.5-17.5); Lymphocytes Absolute Auto 300 /uL (1100-4500); Mean Corpuscular HGB Conc 34.7 % (30-36); Mean Corpuscular Hemoglobin 30.5 PG (26-34); Mean Corpuscular Volume 87.8 fL (80-100); Monocytes Absolute Auto 400 /uL (0-900); Monocytes Percent Auto 3.3 % (3-14); Neutrophils Absolute Auto 12500 /uL (1500-7000); Platelet Count 255 X10^3/uL (150-400); Red Blood Cell Count 5.03 X10^6/uL (4.5-5.9); Red Cell Distribution Width 13.9 % (11.6-14.8); White Blood Cell Count 13.3 X10^3/uL (4.5-11.0)
[2021-10-05 08:51] LABS: Alanine Aminotransferase 24 IU/L (<50); Albumin 4.7 g/dL (3.5-5.0); Albumin Globulin Ratio 1.1 (1.0-2.8); Alkaline Phosphatase 104 U/L (38-126); Aspartate Aminotransferase 31 IU/L (17-59); BUN Creatinine Ratio 16.5 (6-22); Bilirubin Total 1.1 mg/dL (0.2-1.3); Blood Urea Nitrogen 17 mg/dL (9-20); Calcium 9.1 mg/dL (8.4-10.2); Carbon Dioxide 24 mmol/L (22-32); Chloride 106 mmol/L (98-107); Estimated Glomerular Filt Rate > 60 mL/min (>60); Globulin 4.2 g/dL (1.7-4.1); Glucose 126 mg/dL (70-100); HEMOLYSIS 33 (0-50); Sodium 139 mmol/L (137-145); Total Protein 8.9 g/dL (6.3-8.2)
[2021-10-05] MEDS: SODIUM CHLORIDE 0.9% 1,000 ML 1000 ML IV (09:01)
[2021-10-05] MEDS: ONDANSETRON 4 MG/2 ML INJ IV (09:02)
[2021-10-05 10:54] LABS: Adenovirus Not Detected (Not Detect); B. parapertussis Not Detected (Not Detecte); Bordetella pertussis Not Detected (Not Detecte); Chlamydophila pneumoniae Not Detected (Not Detect); Coronavirus 229E Not Detected (Not Detect); Coronavirus HKU1 Not Detected (Not Detect); Coronavirus NL 63 Not Detected (Not Detect); Coronavirus OC43 Not Detected (Not Detect); Human Metapneumovirus Not Detected (Not Detect); Human Rhinovirus/Enterovirus Not Detected (Not Detect); Influenza A Not Detected (Not Detect); Influenza B Not Detected (Not Detect); Mycoplasma pneumoniae Not Detected (Not Detect); Parainfluenza Virus 1 Not Detected (Not Detect); Parainfluenza Virus 2 Not Detected (Not Detect); Parainfluenza Virus 3 Not Detected (Not Detect); Parainfluenza Virus 4 Not Detected (Not Detect); Respiratory Syncytial Virus Not Detected (Not Detect); SARS- CoV-2 Not Detected (Not Detecte)
[2021-10-05 11:24] VITALS: BP 133/71; PULSE 77; RESP 18; O2SAT 98
== END 2021-10-05 11:50 | disposition home or self-care (01) ==
PROVIDERS: Emergency Provider Emergency Medicine; PCP Preventive Medicine Public Health & General Preventive Medicine
DX: R11.10 Vomiting, unspecified (principal); R19.7 Diarrhea, unspecified; Z20.822 Contact with and (suspected) exposure to COVID-19
CPT/HCPCS: 36415; 80053; 85025; 87633; 96361; 96374; 99284; J2405

== ENCOUNTER 2021-12-30 14:30 | Outpatient (RCR) | payer OTHER, SELFPAY ==
--- NOTE | 2021-12-03 16:44 | PT.OIE ---
Current Diagnoses Cervicalgia (12/03/21) Visit Care Team Role Provider Type Sukhwinder Nassar Attending Provider Non-Staff Family Provider Primary Care Provider Referring Provider Specialty: Medical Address: [address] [place] [address], [place], [place], [facility] Email: Physical Therapy Initial Evaluation PT-OP-A Visit Information Start: 11/26/21 19:48 Freq: Status: Active Protocol: Document 12/03/21 14:37 LRN (Rec: 12/03/21 16:10 LRN [id number]) Out-Patient Physical Therapy Visit Information Visit Information Visit Type Initial Evaluation Visit Start Time 14:37 Visit Stop Time 15:17 Total Visit Minutes 40 Visit Number 1 Evaluation Information Evaluation Date 12/03/21 Precautions Precautions Psoriatic Arthritis. PMH: 2 surgeries for L wrist - capsular release and debridement. PT-OP-B Current Condition Start: 11/26/21 19:48 Freq: Status: Active Protocol: Document 12/03/21 14:37 LRN (Rec: 12/03/21 16:10 LRN [id number]) Current Condition History of Current Condition Onset Date 2-3 months ago Current Complaints L neck/shoulder pain History of Current Condition No acurte injury. Recent increase in persistant, nagging, L Neck/shoulder pain. 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 Feels like something is pinched and engaged all the time. Pt has tried different pillows. Has a 4 yr old son that he still lifts and carries. Pt is R handed. Prior Treatments and Tests No prior treatments. Pt reports X-rays show slight narrowing of C4-C5. Treatment Goals Patient/Caregiver Goals Pt goals is: to determine cause and eliminate pain. Improve Cervical ROM Improve ability to concentrate and sleep. Prior Functional Status Baseline Function- ADL's Independent Baseline Function- Mobility Independent Baseline Function- Other Able to sleep 8-10 hrs of restful sleep. 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 Functional Limitations- Other Sleeps 6 hrs/night, tossing and turning. 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 Therapy/Recovery Psoriatic Arthritis. PT-OP-C Subjective Start: 11/26/21 19:48 Freq: Status: Active Protocol: Document 12/03/21 14:37 LRN (Rec: 12/03/21 16:10 LRN [id number]) Patient Questionnaires Neck Disability Index NDI Score 18 Neck Disability Index Impairment 20 to 39% Impaired (Score 10- 19) Quick Dash- Upper Extremity Quick Dash UE Score 22.72 Quick Dash UE Impairment 20 to 39% Impaired (Score 20- 39) OP-PT Pain Assessment Pain Assessment Grid Paper Pain Assessment Grid Completed Yes Location L neck/shoulder Pain Location Details Back of neck, L lateral neck and mid upper shoulder Intensity 7 Scale Used Numeric (0 - 10) Description Aching,Dull Frequency Constant Other Pain Alleviating Factors Alleve or Naproxin. PT-OP-H Neuro Start: 11/26/21 19:48 Freq: Status: Active Protocol: Document 12/03/21 14:37 LRN (Rec: 12/03/21 16:10 LRN [id number]) Sensation Evaluation Gross Sensation Gross Sensation WNL PT-OP-J Posture/Palpation/Skin Start: 11/26/21 19:48 Freq: Status: Active Protocol: Document 12/03/21 14:37 LRN (Rec: 12/03/21 16:10 LRN [id number]) Posture Evaluation Position Standing Head/C-Spine Posture Neutral Position T-Spine Posture Neutral L-Spine Posture Neutral Shoulder Posture Neutral Arm Posture (L) Internally Rotated,(R) Internally Rotated Hip Posture (L) Externally Rotated,(R) Externally Rotated Comments Posture Comments Well developed calves, LE's in slight ER. Palpation Assessment Location Posterior Neck Palpation Location L Cervical paraspinals Palpation Findings Muscle Guarding,Tenderness Medial superior angle of L scapula Palpation Location Lev Scap & UT Palpation Findings Muscle Guarding,Tenderness PT-OP-K Range of Motion Start: 11/26/21 19:48 Freq: Status: Active Protocol: Document 12/03/21 14:37 LRN (Rec: 12/03/21 16:10 LRN [id number]) Cervical Spine Range of Motion Cervical Spine Active Degrees Testing Position Sitting Flexion 42 Extension 45 Rotation Left 55 Rotation Right 65 Lateral Flexion Left 52 Lateral Flexion Right 32 ROM Limitations Soft Tissue Tightness Comments Flex feels tightness of ms on Left (lev scap) Shoulder Goniometric Range of Motion Shoulder Right Active Shoulder ROM WFL Yes Testing Position Sitting Flexion 180 Abduction 180 External Rotation at 0 degrees Abduction 75 Internal Rotation Behind Back (text) T7 Left Active Shoulder ROM WFL Yes Testing Position Sitting Flexion 180 Extension 180 External Rotation at 0 degrees Abduction 65 Internal Rotation Behind Back (text) T7 PT-OP-L Special Tests Start: 11/26/21 19:48 Freq: Status: Active Protocol: Document 12/03/21 14:37 LRN (Rec: 12/03/21 16:10 LRN [id number]) Special Tests Cervical Spine Special Tests Upper Limb Tension Test Test Results - Spurling's Test Test Results + Left Traction Test Results + Comments Decreased discomfort Foraminal Compression Test Results - Vertebral Artery Test Results - bilaterally PT-OP-M Strength Start: 11/26/21 19:48 Freq: Status: Active Protocol: Document 12/03/21 14:37 LRN (Rec: 12/03/21 16:10 LRN [id number]) Cervical Spine Strength Cervical Spine Manual Muscle Testing Testing Position Sitting Flexion (C1-2) 5 Normal Extension 5 Normal Rotation Left 5 Normal Rotation Right 4+ Good+ Lateral Flexion Left (C3) 5 Normal Lateral Flexion Right (C3) 5 Normal PT-OP-Q Treatments Start: 11/26/21 19:48 Freq: Status: Active Protocol: Document 12/03/21 14:37 LRN (Rec: 12/03/21 16:10 LRN [id number]) Self-Care/Home Management Treatment Education Patient Education Home Exercise Program,Posture Other Education Discussed results of evaluation, goals, and plan of care (POC). Pt agreeable to goals and POC. Educated pt in proper posturing for sitting, recommending support to low back and increasing awareness of shoulder positions ( correcting fwd shoulders). Activities Self-Care/Home Management Activities I/S pt in self care ex: neck elongation. PT-OP-T Assessment and Plan Start: 11/26/21 19:48 Freq: Status: Active Protocol: Document 12/03/21 14:37 LRN (Rec: 12/03/21 16:10 LRN [id number]) Physical Therapy Assessment Rehab Potential Rehabilitation Potential Excellent Evaluation Complexity Number of Personal Factors/Comorbidities 1-2 Number of Body Systems Impaired 4 or More Clinical Presentation at Evaluation Evolving Impairments Impairments Activity Tolerance,Pain,ROM, Strength Goals Three Impairment L neck/shoulder pain hindering function and ability to sleep Impairment Pt sleeps 6 hrs/night. Initial Quickdash Score 22.72 (20-39% impaired, score 20-39) Short Term Goal (STG) Decrease pain with improved ability to concentrate. STG Duration 12/31/21 Inclusion Intern Goal (LTG) Decrease pain to 0/10 with pt able to improve restful sleep to 8-10 hrs per night. LTG Duration 02/01/22 Two Impairment Decreased cervical mobility Impairment (in deg's) Rot: L 55, R 65 (in deg's) SB: L 52, R 32 (in deg's) Shoulder ER ( sitting): L 65, R 75. Initial Neck Disability Score -18 (20-39% impaired, score 10 -19) Inclusion Intern Goal (LTG) Pt will demonstrate symmetrical Cervical AROM with improved function for flying. LTG Duration 02/01/22 One Impairment Lacks self care HEP Impairment Decreased C. R rot endurance strength Inclusion Intern Goal (LTG) Pt will be independent with a self care HEP of neck/shoulder ROM & stabilization exercises . LTG Duration 02/01/22 Assessment Summary Assessment Pt presents with mild symptoms of a + L Spurlings test and + Cervical Distraction test; indicating possible pinched or compressed nerve at level of C3-C4 and possibly involving dorsal scapular nerve C5. The pt has slight weakness of Cervical R rot, possibly due to poor stabilization of the neck on the L side. He demonstrates muscle guarding in the L cervical paraspinals and the L Levator Scapula. The pt will benefit from skilled physical therapy to decrease pain, improve stability of the neck/ shoulders and improve function and ability to get a restful nights sleep. Physical Therapy Plan Frequency and Duration Frequency of Treatment 2x/Week Plan of Care Start Date 12/03/21 Plan of Care End Date 02/01/22 Therapeutic Interventions Therapeutic Interventions Home Exercise Program,Joint Mobilizations,Manual Therapy, Neuromuscular Re-education, Patient/Caregiver Education, Self-Care/Home Management,Soft Tissue Mobilization,Taping, Therapeutic Activities, Therapeutic Exercises Modalities Traction- Mechanical, Ultrasound Next Visit Focus/Plan Next Note Type Treatment Note Next Visit Plan Assess UE C5-C6 DTR's (Biceps, Brachioradials). Modalities or STM (C. paraspinals, Lev Scap, UT) to start (US to neck/upper shoulder) to decrease ms tone, Pt education in nighttime positioning for best head/neck position and use of modalities for pain management . f/b JMT of C3-C4, traction at C5 and, C/S stab and Shoulder girdle stabilization.
--- NOTE | 2021-12-03 16:44 | PT.OPPOC ---
Physical, Occupational & Speech Therapy At [facility] Current Diagnoses Cervicalgia (12/03/21) Visit Care Team Role Provider Type Sukhwinder Nassar Attending Provider Non-Staff Family Provider Primary Care Provider Referring Provider Specialty: Medical Address: [address] [place] [address], [id number] Email: Plan Of Care PT-OP-T Assessment and Plan Start: 11/26/21 19:48 Freq: Status: Active Protocol: Document 12/03/21 14:37 LRN (Rec: 12/03/21 16:10 LRN [id number]) Physical Therapy Assessment Rehab Potential Rehabilitation Potential Excellent Evaluation Complexity Number of Personal Factors/Comorbidities 1-2 Number of Body Systems Impaired 4 or More Clinical Presentation at Evaluation Evolving Impairments Impairments Activity Tolerance,Pain,ROM, Strength Goals Three Impairment L neck/shoulder pain hindering function and ability to sleep Impairment Pt sleeps 6 hrs/night. Initial Quickdash Score 22.72 (20-39% impaired, score 20-39) Short Term Goal (STG) Decrease pain with improved ability to concentrate. STG Duration 12/31/21 Mcfp Goal (LTG) Decrease pain to 0/10 with pt able to improve restful sleep to 8-10 hrs per night. LTG Duration 02/01/22 Two Impairment Decreased cervical mobility Impairment (in deg's) Rot: L 55, R 65 (in deg's) SB: L 52, R 32 (in deg's) Shoulder ER ( sitting): L 65, R 75. Initial Neck Disability Score -18 (20-39% impaired, score 10 -19) Mcfp Goal (LTG) Pt will demonstrate symmetrical Cervical AROM with improved function for flying. LTG Duration 02/01/22 One Impairment Lacks self care HEP Impairment Decreased C. R rot endurance strength Mcfp Goal (LTG) Pt will be independent with a self care HEP of neck/shoulder ROM & stabilization exercises . LTG Duration 02/01/22 Assessment Summary Assessment Pt presents with mild symptoms of a + L Spurlings test and + Cervical Distraction test; indicating possible pinched or compressed nerve at level of C3-C4 and possibly involving dorsal scapular nerve C5. The pt has slight weakness of Cervical R rot, possibly due to poor stabilization of the neck on the L side. He demonstrates muscle guarding in the L cervical paraspinals and the L Levator Scapula. The pt will benefit from skilled physical therapy to decrease pain, improve stability of the neck/ shoulders and improve function and ability to get a restful nights sleep. Physical Therapy Plan Frequency and Duration Frequency of Treatment 2x/Week Plan of Care Start Date 12/03/21 Plan of Care End Date 02/01/22 Therapeutic Interventions Therapeutic Interventions Home Exercise Program,Joint Mobilizations,Manual Therapy, Neuromuscular Re-education, Patient/Caregiver Education, Self-Care/Home Management,Soft Tissue Mobilization,Taping, Therapeutic Activities, Therapeutic Exercises Modalities Traction- Mechanical, Ultrasound Next Visit Focus/Plan Next Note Type Treatment Note Next Visit Plan Assess UE C5-C6 DTR's (Biceps, Brachioradials). Modalities or STM (C. paraspinals, Lev Scap, UT) to start (US to neck/upper shoulder) to decrease ms tone, Pt education in nighttime positioning for best head/neck position and use of modalities for pain management . f/b JMT of C3-C4, traction at C5 and, C/S stab and Shoulder girdle stabilization. Plan of Care Dates Plan of Care Start Date 12/03/21 Plan of Care End Date 02/01/22 Electronically Signed by: Yelena Metcalf, PT 12/03/21 [id number] If you are in agreement with this Plan of Care, please return a signed and dated copy. I have reviewed this Plan of Care and certify that the skilled therapy services above are required to meet the patient?s needs. Physician Signature Date Printed Name and Credentials Clinical Instructor Signature Printed Name and Credentials
--- NOTE | 2021-12-09 16:40 | PT.OTN ---
Current Diagnoses Cervicalgia (12/09/21) Physical Therapy Treatment Note PT-OP-A Visit Information Start: 11/26/21 19:48 Freq: Status: Active Protocol: Document 12/09/21 15:20 LRN (Rec: 12/09/21 16:38 LRN [id number]) Out-Patient Physical Therapy Visit Information Visit Information Visit Type Treatment Note Visit Start Time 15:19 Visit Stop Time 16:01 Total Visit Minutes 42 Visit Number 2 Evaluation Information Evaluation Date 12/03/21 Precautions Precautions Psoriatic Arthritis. PMH: 2 surgeries for L wrist - capsular release and debridement. PT-OP-B Current Condition Start: 11/26/21 19:48 Freq: Status: Active Protocol: Document 12/03/21 14:37 LRN (Rec: 12/03/21 16:10 LRN [id number]) Current Condition History of Current Condition Onset Date 2-3 months ago Current Complaints L neck/shoulder pain History of Current Condition No acurte injury. Recent increase in persistant, nagging, L Neck/shoulder pain. 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 Feels like something is pinched and engaged all the time. Pt has tried different pillows. Has a 4 yr old son that he still lifts and carries. Pt is R handed. Prior Treatments and Tests No prior treatments. Pt reports X-rays show slight narrowing of C4-C5. Treatment Goals Patient/Caregiver Goals Pt goals is: to determine cause and eliminate pain. Improve Cervical ROM Improve ability to concentrate and sleep. Prior Functional Status Baseline Function- ADL's Independent Baseline Function- Mobility Independent Baseline Function- Other Able to sleep 8-10 hrs of restful sleep. 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 Functional Limitations- Other Sleeps 6 hrs/night, tossing and turning. 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 Therapy/Recovery Psoriatic Arthritis. PT-OP-C Subjective Start: 11/26/21 19:48 Freq: Status: Active Protocol: Document 12/03/21 14:37 LRN (Rec: 12/03/21 16:10 LRN [id number]) Patient Questionnaires Neck Disability Index NDI Score 18 Neck Disability Index Impairment 20 to 39% Impaired (Score 10- 19) Quick Dash- Upper Extremity Quick Dash UE Score 22.72 Quick Dash UE Impairment 20 to 39% Impaired (Score 20- 39) OP-PT Pain Assessment Pain Assessment Grid Paper Pain Assessment Grid Completed Yes Location L neck/shoulder Pain Location Details Back of neck, L lateral neck and mid upper shoulder Intensity 7 Scale Used Numeric (0 - 10) Description Aching,Dull Frequency Constant Other Pain Alleviating Factors Alleve or Naproxin. PT-OP-H Neuro Start: 11/26/21 19:48 Freq: Status: Active Protocol: Document 12/09/21 15:20 LRN (Rec: 12/09/21 16:38 LRN [id number]) Deep Tendon Reflex & Clonus Assessment Deep Tendon Reflex Right Bicep Deep Tendon Reflex 2+ Normal Left Bicep Deep Tendon Reflex 2+ Normal Right Brachioradialis Deep Tendon Reflex 2+ Normal Left Brachioradialis Deep Tendon Reflex 0 Absent PT-OP-J Posture/Palpation/Skin Start: 11/26/21 19:48 Freq: Status: Active Protocol: Document 12/03/21 14:37 LRN (Rec: 12/03/21 16:10 LRN [id number]) Posture Evaluation Position Standing Head/C-Spine Posture Neutral Position T-Spine Posture Neutral L-Spine Posture Neutral Shoulder Posture Neutral Arm Posture (L) Internally Rotated,(R) Internally Rotated Hip Posture (L) Externally Rotated,(R) Externally Rotated Comments Posture Comments Well developed calves, LE's in slight ER. Palpation Assessment Location Posterior Neck Palpation Location L Cervical paraspinals Palpation Findings Muscle Guarding,Tenderness Medial superior angle of L scapula Palpation Location Lev Scap & UT Palpation Findings Muscle Guarding,Tenderness PT-OP-K Range of Motion Start: 11/26/21 19:48 Freq: Status: Active Protocol: Document 12/03/21 14:37 LRN (Rec: 12/03/21 16:10 LRN [id number]) Cervical Spine Range of Motion Cervical Spine Active Degrees Testing Position Sitting Flexion 42 Extension 45 Rotation Left 55 Rotation Right 65 Lateral Flexion Left 52 Lateral Flexion Right 32 ROM Limitations Soft Tissue Tightness Comments Flex feels tightness of ms on Left (lev scap) Shoulder Goniometric Range of Motion Shoulder Right Active Shoulder ROM WFL Yes Testing Position Sitting Flexion 180 Abduction 180 External Rotation at 0 degrees Abduction 75 Internal Rotation Behind Back (text) T7 Left Active Shoulder ROM WFL Yes Testing Position Sitting Flexion 180 Extension 180 External Rotation at 0 degrees Abduction 65 Internal Rotation Behind Back (text) T7 PT-OP-L Special Tests Start: 11/26/21 19:48 Freq: Status: Active Protocol: Document 12/03/21 14:37 LRN (Rec: 12/03/21 16:10 LRN [id number]) Special Tests Cervical Spine Special Tests Upper Limb Tension Test Test Results - Spurling's Test Test Results + Left Traction Test Results + Comments Decreased discomfort Foraminal Compression Test Results - Vertebral Artery Test Results - bilaterally PT-OP-M Strength Start: 11/26/21 19:48 Freq: Status: Active Protocol: Document 12/03/21 14:37 LRN (Rec: 12/03/21 16:10 LRN [id number]) Cervical Spine Strength Cervical Spine Manual Muscle Testing Testing Position Sitting Flexion (C1-2) 5 Normal Extension 5 Normal Rotation Left 5 Normal Rotation Right 4+ Good+ Lateral Flexion Left (C3) 5 Normal Lateral Flexion Right (C3) 5 Normal PT-OP-Q Treatments Start: 11/26/21 19:48 Freq: Status: Active Protocol: Document 12/09/21 15:20 LRN (Rec: 12/09/21 16:38 LRN [id number]) Therapeutic Exercises Supine Exercises Pec stretch Supine Exercise Name Football goal post and V stretch f/b active stretch Side bilateral Reps/Minutes 5' Neck Elongation Supine Exercise Name Neck Elongation Reps/Minutes 10 H x 10 Comments Helpful to give phys cue to head for correct neck elongation Manual Therapy Treatment Soft Tissue Mobilization L Pec stretch Body Location L Pec katina & minor stretch Mobilization Type Myofascial Release Intensity/Depth Superficial > Moderate Body Position Supine L Scalenes Body Location L anterior, middle and posterior scalene stretch Mobilization Type Sustained Pressure Body Position Supine Comments Passive stretch Manual Traction Cervical Details Manual traction at 30, 45, 50 deg's flex Body Position Supine Reps/Duration 4' Comments Ms relaxation felt with traction. No change in L neck pain with neck ext/L rot. Self-Care/Home Management Treatment Education Other Education Pt educated in proper nighttime positioning with discussion of support needed for head in sidelye (to keep alignment of head on shoulders ) and support to L UE in R sidelie and for support from shoulder to head (saggital and coronal planes). Discussion of driving support with support under low back, head resting on head rest, shoulder good alignement with head (avoid slouching). Activities Self-Care/Home Management Activities I/S pt to cont C. AROM for ext , rot, SB (not flex), neck elongation, Pec stretch (goal- post & V), Proper sitting posture on drives to [place] & proper nighttime positioning, trying towel roll around head & hand towel roll under neck. PT-OP-R Modalities Start: 11/26/21 19:48 Freq: Status: Active Protocol: Document 12/09/21 15:20 LRN (Rec: 12/09/21 16:38 LRN [id number]) Ultrasound Therapy Treatment L neck/UT Treatment Duration (minutes) 8 Patient Position Prone Coupling Medium Ultrasound Gel Applicator Size (cm2) 10 Frequency Setting (mHz) 1 Duty Cycle 50% Intensity Setting (w/cm2) 1.5 PT-OP-T Assessment and Plan Start: 11/26/21 19:48 Freq: Status: Active Protocol: Document 12/09/21 15:20 LRN (Rec: 12/09/21 16:38 LRN [id number]) Physical Therapy Assessment Goals Three Impairment L neck/shoulder pain hindering function and ability to sleep Impairment Pt sleeps 6 hrs/night. Initial Quickdash Score 22.72 (20-39% impaired, score 20-39) Short Term Goal (STG) Decrease pain with improved ability to concentrate. STG Duration 12/31/21 Dredge Pipeman Goal (LTG) Decrease pain to 0/10 with pt able to improve restful sleep to 8-10 hrs per night. LTG Duration 02/01/22 Two Impairment Decreased cervical mobility Impairment (in deg's) Rot: L 55, R 65 (in deg's) SB: L 52, R 32 (in deg's) Shoulder ER ( sitting): L 65, R 75. Initial Neck Disability Score -18 (20-39% impaired, score 10 -19) Dredge Pipeman Goal (LTG) Pt will demonstrate symmetrical Cervical AROM with improved function for flying. LTG Duration 02/01/22 One Impairment Lacks self care HEP Impairment Decreased C. R rot endurance strength [facility] Goal (LTG) Pt will be independent with a self care HEP of neck/shoulder ROM & stabilization exercises . (12/09/21: I/S in HEP: C. AROM for ext, SB, rot) LTG Duration 02/01/22 (12/09/21: Progressed ) Assessment Summary Assessment Possible pinched or compressed nerve at level of C3-C4, C5, possibly involving dorsal scapular nerve C5. Absent L UE C5-C6 Brachioradialis, othewise normal. Decreased pinchy feeling in the L lateral neck after US, but pain with head tipping back and rotating left. Pt very receptive to changes in nighttime positioning and sitting posture training. He has muscle guarding in the L cervical paraspinals and L Levator Scapula. Physical Therapy Plan Frequency and Duration Frequency of Treatment 2x/Week Plan of Care Start Date 12/03/21 Plan of Care End Date 02/01/22 Next Visit Focus/Plan Next Note Type Treatment Note Next Visit Plan US to neck/upper shoulder (L C . paraspinals, Lev Scap, UT) to decrease ms tone, Assess response to manual traction, education in nighttime positioning using pillows or towel roll around head (small roll under neck), and result of driving to [place] with recommended positioning. Assess use of MH/Cryothierapy for pain management, which works best. f/b JMT of C3-C4, traction at C5, Ther ex: Start C/S stab and Shoulder girdle stabilization.
--- NOTE | 2021-12-15 15:20 | PT.OTN ---
Current Diagnoses Cervicalgia (12/15/21) Physical Therapy Treatment Note PT-OP-A Visit Information Start: 11/26/21 19:48 Freq: Status: Active Protocol: Document 12/15/21 14:32 SP (Rec: 12/15/21 15:42 SP [id number]) Out-Patient Physical Therapy Visit Information Visit Information Visit Type Treatment Note Visit Start Time 14:32 Visit Stop Time 15:20 Total Visit Minutes 48 Visit Number 3 Number of INSULATION ENGINEMAN Visits 1 Evaluation Information Evaluation Date 12/03/21 Precautions Precautions Psoriatic Arthritis. PMH: 2 surgeries for L wrist - capsular release and debridement. PT-OP-B Current Condition Start: 11/26/21 19:48 Freq: Status: Active Protocol: Document 12/03/21 14:37 LRN (Rec: 12/03/21 16:10 LRN [id number]) Current Condition History of Current Condition Onset Date 2-3 months ago Current Complaints L neck/shoulder pain History of Current Condition No acurte injury. Recent increase in persistant, nagging, L Neck/shoulder pain. 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 Feels like something is pinched and engaged all the time. Pt has tried different pillows. Has a 4 yr old son that he still lifts and carries. Pt is R handed. Prior Treatments and Tests No prior treatments. Pt reports X-rays show slight narrowing of C4-C5. Treatment Goals Patient/Caregiver Goals Pt goals is: to determine cause and eliminate pain. Improve Cervical ROM Improve ability to concentrate and sleep. Prior Functional Status Baseline Function- ADL's Independent Baseline Function- Mobility Independent Baseline Function- Other Able to sleep 8-10 hrs of restful sleep. 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 Functional Limitations- Other Sleeps 6 hrs/night, tossing and turning. 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 Therapy/Recovery Psoriatic Arthritis. PT-OP-C Subjective Start: 11/26/21 19:48 Freq: Status: Active Protocol: Document 12/15/21 14:32 SP (Rec: 12/15/21 15:42 SP [id number]) OP-PT Subjective Patient Comments Patient Comments Pt reported neck better after last tx. Compliant with HEP given. PT-OP-H Neuro Start: 11/26/21 19:48 Freq: Status: Active Protocol: Document 12/09/21 15:20 LRN (Rec: 12/09/21 16:38 LRN [id number]) Deep Tendon Reflex & Clonus Assessment Deep Tendon Reflex Right Bicep Deep Tendon Reflex 2+ Normal Left Bicep Deep Tendon Reflex 2+ Normal Right Brachioradialis Deep Tendon Reflex 2+ Normal Left Brachioradialis Deep Tendon Reflex 0 Absent PT-OP-J Posture/Palpation/Skin Start: 11/26/21 19:48 Freq: Status: Active Protocol: Document 12/03/21 14:37 LRN (Rec: 12/03/21 16:10 LRN [id number]) Posture Evaluation Position Standing Head/C-Spine Posture Neutral Position T-Spine Posture Neutral L-Spine Posture Neutral Shoulder Posture Neutral Arm Posture (L) Internally Rotated,(R) Internally Rotated Hip Posture (L) Externally Rotated,(R) Externally Rotated Comments Posture Comments Well developed calves, LE's in slight ER. Palpation Assessment Location Posterior Neck Palpation Location L Cervical paraspinals Palpation Findings Muscle Guarding,Tenderness Medial superior angle of L scapula Palpation Location Lev Scap & UT Palpation Findings Muscle Guarding,Tenderness PT-OP-K Range of Motion Start: 11/26/21 19:48 Freq: Status: Active Protocol: Document 12/03/21 14:37 LRN (Rec: 12/03/21 16:10 LRN [id number]) Cervical Spine Range of Motion Cervical Spine Active Degrees Testing Position Sitting Flexion 42 Extension 45 Rotation Left 55 Rotation Right 65 Lateral Flexion Left 52 Lateral Flexion Right 32 ROM Limitations Soft Tissue Tightness Comments Flex feels tightness of ms on Left (lev scap) Shoulder Goniometric Range of Motion Shoulder Right Active Shoulder ROM WFL Yes Testing Position Sitting Flexion 180 Abduction 180 External Rotation at 0 degrees Abduction 75 Internal Rotation Behind Back (text) T7 Left Active Shoulder ROM WFL Yes Testing Position Sitting Flexion 180 Extension 180 External Rotation at 0 degrees Abduction 65 Internal Rotation Behind Back (text) T7 PT-OP-L Special Tests Start: 11/26/21 19:48 Freq: Status: Active Protocol: Document 12/03/21 14:37 LRN (Rec: 12/03/21 16:10 LRN [id number]) Special Tests Cervical Spine Special Tests Upper Limb Tension Test Test Results - Spurling's Test Test Results + Left Traction Test Results + Comments Decreased discomfort Foraminal Compression Test Results - Vertebral Artery Test Results - bilaterally PT-OP-M Strength Start: 11/26/21 19:48 Freq: Status: Active Protocol: Document 12/03/21 14:37 LRN (Rec: 12/03/21 16:10 LRN [id number]) Cervical Spine Strength Cervical Spine Manual Muscle Testing Testing Position Sitting Flexion (C1-2) 5 Normal Extension 5 Normal Rotation Left 5 Normal Rotation Right 4+ Good+ Lateral Flexion Left (C3) 5 Normal Lateral Flexion Right (C3) 5 Normal PT-OP-Q Treatments Start: 11/26/21 19:48 Freq: Status: Active Protocol: Document 12/15/21 14:32 SP (Rec: 12/15/21 15:42 SP [id number]) Therapeutic Exercises Supine Exercises pec stretch, snow angels Supine Exercise Name added to HEP Equipment Used length over foam roller (might get for office) Reps/Minutes 30 various ranges stretch, snow angle x10 reps Comments good response opens up chest/ scap complex TS ext/rolling Supine Exercise Name added to HEP Equipment Used horizontal over foam roller ( has 1/4 roller at home) Reps/Minutes 2 min Comments good feedback response Pec stretch Supine Exercise Name Football goal post and V stretch f/b active stretch Side bilateral Equipment Used table Reps/Minutes 20 s hold x5 Comments good form Neck Elongation Supine Exercise Name Neck Elongation Reps/Minutes 10 H x 10 Comments Helpful to give phys cue to head for correct neck elongation Sidelying Exercises open book Sidelying Exercise Name TS rotation: added to HEP Side bilateral Reps/Minutes x5 reps, last 2 3 breathes Comments cued head turn with arm painfree range Sitting Exercises STMs Sitting Exercise Name 1. neck w/ theracane MWM nod/ turn, 2. ball wall- UT/ post scap Reps/Minutes 5 min Comments good form and feedback response- will get for home/ office UT, LS, scalene stretching Sitting Exercise Name added to HEP Side bilateral Reps/Minutes 30 hold x3 each Comments good form Standing Exercises daily dozen- yoga AROM Standing Exercise Name see hand out: trunk rot/scap ROM/post chain str, triangle/ rev triangle, etc Resistance added AROM for pre/post flying Comments assist increase functional ROM Manual Therapy Treatment Soft Tissue Mobilization L Pec stretch Body Location L Pec katina & minor stretch Mobilization Type Myofascial Release Intensity/Depth Superficial > Moderate Body Position Supine L Scalenes Body Location L anterior, middle and posterior scalene stretch, B suboccipitals, SCM Mobilization Type Sustained Pressure Body Position Supine Comments Passive stretch Self-Care/Home Management Treatment Education Patient Education Home Exercise Program,Posture Other Education initiated stretching UT/ LS/ Scalene/ pec, TS rotation open book, TS ext/roll w/ foam roller, self STMs with theracane and ball on wall with good feedback by end tx good understanding and performance. Provided HOs and added aviator daily dozen for added functional rotation pre/ post flying to allow increase ROM. PT-OP-R Modalities Start: 11/26/21 19:48 Freq: Status: Active Protocol: Document 12/09/21 15:20 LRN (Rec: 12/09/21 16:38 LRN [id number]) Ultrasound Therapy Treatment L neck/UT Treatment Duration (minutes) 8 Patient Position Prone Coupling Medium Ultrasound Gel Applicator Size (cm2) 10 Frequency Setting (mHz) 1 Duty Cycle 50% Intensity Setting (w/cm2) 1.5 PT-OP-T Assessment and Plan Start: 11/26/21 19:48 Freq: Status: Active Protocol: Document 12/15/21 14:32 SP (Rec: 12/15/21 15:42 SP [id number]) Physical Therapy Assessment Goals Three Impairment L neck/shoulder pain hindering function and ability to sleep Impairment Pt sleeps 6 hrs/night. Initial Quickdash Score 22.72 (20-39% impaired, score 20-39) Short Term Goal (STG) Decrease pain with improved ability to concentrate. STG Duration 12/31/21 [facility] Goal (LTG) Decrease pain to 0/10 with pt able to improve restful sleep to 8-10 hrs per night. LTG Duration 02/01/22 Two Impairment Decreased cervical mobility Impairment (in deg's) Rot: L 55, R 65 (in deg's) SB: L 52, R 32 (in deg's) Shoulder ER ( sitting): L 65, R 75. Initial Neck Disability Score -18 (20-39% impaired, score 10 -19) [facility] Goal (LTG) Pt will demonstrate symmetrical Cervical AROM with improved function for flying. LTG Duration 02/01/22 One Impairment Lacks self care HEP Impairment Decreased C. R rot endurance strength [facility] Goal (LTG) Pt will be independent with a self care HEP of neck/shoulder ROM & stabilization exercises . (12/09/21: I/S in HEP: C. AROM for ext, SB, rot) LTG Duration 02/01/22 (12/09/21: Progressed ) Assessment Summary Assessment Pt responded well to manual, stretching/ROM HEP and added use of equipment: foam roller, theracane to carryover at work/ home to counteract flying against G-forces at work in [place]. Pt stated felt alot more ROM/mobility end tx. Physical Therapy Plan Frequency and Duration Frequency of Treatment 2x/Week Plan of Care Start Date 12/03/21 Plan of Care End Date 02/01/22 Therapeutic Interventions Therapeutic Interventions Home Exercise Program,Joint Mobilizations,Manual Therapy, Neuromuscular Re-education, Patient/Caregiver Education, Self-Care/Home Management,Soft Tissue Mobilization,Taping, Therapeutic Activities, Therapeutic Exercises Modalities Traction- Mechanical, Ultrasound Next Visit Focus/Plan Next Note Type Treatment Note Next Visit Plan Assess response manual/ stretching/ self STMs. Next tx : add CS rotation with nods for active MWM ROM. CS and scap complex stabilization. POC: US to neck/upper shoulder (L C. paraspinals, Lev Scap, UT) to decrease ms tone, Assess response to manual traction, education in nighttime positioning using pillows or towel roll around head (small roll under neck), and result of driving to [place] with recommended positioning. Assess use of MH/Cryotherapy for pain management, which works best. f/b JMT of C3-C4, traction at C5.
--- NOTE | 2021-12-17 16:25 | PT.OTN ---
Current Diagnoses Cervicalgia (12/17/21) Physical Therapy Treatment Note PT-OP-A Visit Information Start: 11/26/21 19:48 Freq: Status: Active Protocol: Document 12/17/21 15:22 LRN (Rec: 12/17/21 16:24 LRN [id number]) Out-Patient Physical Therapy Visit Information Visit Information Visit Type Treatment Note Visit Start Time 15:22 Visit Stop Time 16:07 Total Visit Minutes 45 Visit Number 4 Evaluation Information Evaluation Date 12/03/21 Precautions Precautions Psoriatic Arthritis. PMH: 2 surgeries for L wrist - capsular release and debridement. PT-OP-B Current Condition Start: 11/26/21 19:48 Freq: Status: Active Protocol: Document 12/03/21 14:37 LRN (Rec: 12/03/21 16:10 LRN [id number]) Current Condition History of Current Condition Onset Date 2-3 months ago Current Complaints L neck/shoulder pain History of Current Condition No acurte injury. Recent increase in persistant, nagging, L Neck/shoulder pain. 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 Feels like something is pinched and engaged all the time. Pt has tried different pillows. Has a 4 yr old son that he still lifts and carries. Pt is R handed. Prior Treatments and Tests No prior treatments. Pt reports X-rays show slight narrowing of C4-C5. Treatment Goals Patient/Caregiver Goals Pt goals is: to determine cause and eliminate pain. Improve Cervical ROM Improve ability to concentrate and sleep. Prior Functional Status Baseline Function- ADL's Independent Baseline Function- Mobility Independent Baseline Function- Other Able to sleep 8-10 hrs of restful sleep. 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 Functional Limitations- Other Sleeps 6 hrs/night, tossing and turning. 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 Therapy/Recovery Psoriatic Arthritis. PT-OP-C Subjective Start: 11/26/21 19:48 Freq: Status: Active Protocol: Document 12/17/21 15:22 LRN (Rec: 12/17/21 16:24 LRN [id number]) OP-PT Subjective Patient Comments Patient Comments [place] good the next day. Dull ache is going away. Extending w/neck SB is causing pinching in L neck. Ordered theracane and used tennis ball to STM. PT-OP-H Neuro Start: 11/26/21 19:48 Freq: Status: Active Protocol: Document 12/09/21 15:20 LRN (Rec: 12/09/21 16:38 LRN [id number]) Deep Tendon Reflex & Clonus Assessment Deep Tendon Reflex Right Bicep Deep Tendon Reflex 2+ Normal Left Bicep Deep Tendon Reflex 2+ Normal Right Brachioradialis Deep Tendon Reflex 2+ Normal Left Brachioradialis Deep Tendon Reflex 0 Absent PT-OP-J Posture/Palpation/Skin Start: 11/26/21 19:48 Freq: Status: Active Protocol: Document 12/03/21 14:37 LRN (Rec: 12/03/21 16:10 LRN [id number]) Posture Evaluation Position Standing Head/C-Spine Posture Neutral Position T-Spine Posture Neutral L-Spine Posture Neutral Shoulder Posture Neutral Arm Posture (L) Internally Rotated,(R) Internally Rotated Hip Posture (L) Externally Rotated,(R) Externally Rotated Comments Posture Comments Well developed calves, LE's in slight ER. Palpation Assessment Location Posterior Neck Palpation Location L Cervical paraspinals Palpation Findings Muscle Guarding,Tenderness Medial superior angle of L scapula Palpation Location Lev Scap & UT Palpation Findings Muscle Guarding,Tenderness PT-OP-K Range of Motion Start: 11/26/21 19:48 Freq: Status: Active Protocol: Document 12/03/21 14:37 LRN (Rec: 12/03/21 16:10 LRN [id number]) Cervical Spine Range of Motion Cervical Spine Active Degrees Testing Position Sitting Flexion 42 Extension 45 Rotation Left 55 Rotation Right 65 Lateral Flexion Left 52 Lateral Flexion Right 32 ROM Limitations Soft Tissue Tightness Comments Flex feels tightness of ms on Left (lev scap) Shoulder Goniometric Range of Motion Shoulder Right Active Shoulder ROM WFL Yes Testing Position Sitting Flexion 180 Abduction 180 External Rotation at 0 degrees Abduction 75 Internal Rotation Behind Back (text) T7 Left Active Shoulder ROM WFL Yes Testing Position Sitting Flexion 180 Extension 180 External Rotation at 0 degrees Abduction 65 Internal Rotation Behind Back (text) T7 PT-OP-L Special Tests Start: 11/26/21 19:48 Freq: Status: Active Protocol: Document 12/03/21 14:37 LRN (Rec: 12/03/21 16:10 LRN [id number]) Special Tests Cervical Spine Special Tests Upper Limb Tension Test Test Results - Spurling's Test Test Results + Left Traction Test Results + Comments Decreased discomfort Foraminal Compression Test Results - Vertebral Artery Test Results - bilaterally PT-OP-M Strength Start: 11/26/21 19:48 Freq: Status: Active Protocol: Document 12/03/21 14:37 LRN (Rec: 12/03/21 16:10 LRN [id number]) Cervical Spine Strength Cervical Spine Manual Muscle Testing Testing Position Sitting Flexion (C1-2) 5 Normal Extension 5 Normal Rotation Left 5 Normal Rotation Right 4+ Good+ Lateral Flexion Left (C3) 5 Normal Lateral Flexion Right (C3) 5 Normal PT-OP-Q Treatments Start: 11/26/21 19:48 Freq: Status: Active Protocol: Document 12/17/21 15:22 LRN (Rec: 12/17/21 16:24 LRN [id number]) Cardio Equipment Recumbent Stepper (Sci-Fit) Duration (Minutes) 8 Resistance 2.7 Seat Position 13 Other ~70 rpm, distance Therapeutic Exercises Supine Exercises neck/knees rot Supine Exercise Name Head/knees opp rotation Side bilateral Reps/Minutes 8 H x 5 each Comments Pt cued to move slow with motion Sitting Exercises C. AROM Sitting Exercise Name C. AROM for rot between MWM bouts. Side bilateral Reps/Minutes 5' Manual Therapy Treatment Joint Mobilizations C/S Joint C2-C3.C3-C4.C4-C5 Direction Gapping Grade III Body Position Supine Reps/Duration 5' Comments No pain with C. mobility after mobs. Pt tight on R side. Manual Techniques MWM Type MWM (see below) Comments 1) C/S snag rot (ext/LSB) with lift on L neck to assist head rotation. 2) PA of T2 R Trp w/head R Sidebend moving into ext and to L > PA T3/T4 L Trp w/head in ext moving to L Sidebend. Self-Care/Home Management Treatment Education Patient Education Home Exercise Program,Posture Other Education Educated pt in self C/S snag for restricted rotation. Reviewed proper sleep position for neck/shoulder/head position and cautioned against head in R SB. Activities Self-Care/Home Management Activities Issued & reviewed self C/S SNAG for rotation. I/S pt in using 2 tennis balls combined for self PA pressure placement in T/S for painfree cervical rotation. PT-OP-R Modalities Start: 11/26/21 19:48 Freq: Status: Active Protocol: Document 12/09/21 15:20 LRN (Rec: 12/09/21 16:38 LRN [id number]) Ultrasound Therapy Treatment L neck/UT Treatment Duration (minutes) 8 Patient Position Prone Coupling Medium Ultrasound Gel Applicator Size (cm2) 10 Frequency Setting (mHz) 1 Duty Cycle 50% Intensity Setting (w/cm2) 1.5 PT-OP-T Assessment and Plan Start: 11/26/21 19:48 Freq: Status: Active Protocol: Document 12/17/21 15:22 LRN (Rec: 12/17/21 16:24 LRN [id number]) Physical Therapy Assessment Goals Three Impairment L neck/shoulder pain hindering function and ability to sleep Impairment Pt sleeps 6 hrs/night. Initial Quickdash Score 22.72 (20-39% impaired, score 20-39) Short Term Goal (STG) Decrease pain with improved ability to concentrate. STG Duration 12/31/21 Halfway Goal (LTG) Decrease pain to 0/10 with pt able to improve restful sleep to 8-10 hrs per night. (12/17/21: Wifes states he is tossing and turning less). LTG Duration 02/01/22 (12/17/21: Progressing) Two Impairment Decreased cervical mobility Impairment (in deg's) Rot: L 55, R 65 (in deg's) SB: L 52, R 32 (in deg's) Shoulder ER ( sitting): L 65, R 75. Initial Neck Disability Score -18 (20-39% impaired, score 10 -19) Halfway Goal (LTG) Pt will demonstrate symmetrical Cervical AROM with improved function for flying. LTG Duration 02/01/22 One Impairment Lacks self care HEP Impairment Decreased C. R rot endurance strength Halfway Goal (LTG) Pt will be independent with a self care HEP of neck/shoulder ROM & stabilization exercises . (12/09/21: I/S in HEP: C. AROM for ext, SB, rot) LTG Duration 02/01/22 (12/09/21: Progressed ) Assessment Summary Assessment Not tossing and turning as much. Improving with not as much neck pain in the morning. Pt felt better the day after the last session because looser. Jt stiffness on R side with C/S JMT. Physical Therapy Plan Frequency and Duration Frequency of Treatment 2x/Week Plan of Care Start Date 12/03/21 Plan of Care End Date 02/01/22 Next Visit Focus/Plan Next Note Type Treatment Note Next Visit Plan Next tx: add CS rotation with nods for active MWM ROM. CS and scap complex stabilization . POC: US to neck/upper shoulder (L C. paraspinals, Lev Scap, UT) to decrease ms tone, Assess response to manual traction, education in nighttime positioning using pillows or towel roll around head (small roll under neck), and result of driving to [place] with recommended positioning. Assess use of MH/Cryotherapy for pain management, which works best. f/b JMT of C3-C4, traction at C5.
--- NOTE | 2021-12-20 16:29 | PT.OTN ---
Current Diagnoses Cervicalgia (12/20/21) Physical Therapy Treatment Note PT-OP-A Visit Information Start: 11/26/21 19:48 Freq: Status: Active Protocol: Document 12/20/21 15:23 LRN (Rec: 12/20/21 16:25 LRN [id number]) Out-Patient Physical Therapy Visit Information Visit Information Visit Type Treatment Note Visit Start Time 15:23 Visit Stop Time 16:07 Total Visit Minutes 44 Visit Number 4 Evaluation Information Evaluation Date 12/03/21 Precautions Precautions Psoriatic Arthritis. PMH: 2 surgeries for L wrist - capsular release and debridement. PT-OP-B Current Condition Start: 11/26/21 19:48 Freq: Status: Active Protocol: Document 12/03/21 14:37 LRN (Rec: 12/03/21 16:10 LRN [id number]) Current Condition History of Current Condition Onset Date 2-3 months ago Current Complaints L neck/shoulder pain History of Current Condition No acurte injury. Recent increase in persistant, nagging, L Neck/shoulder pain. 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 Feels like something is pinched and engaged all the time. Pt has tried different pillows. Has a 4 yr old son that he still lifts and carries. Pt is R handed. Prior Treatments and Tests No prior treatments. Pt reports X-rays show slight narrowing of C4-C5. Treatment Goals Patient/Caregiver Goals Pt goals is: to determine cause and eliminate pain. Improve Cervical ROM Improve ability to concentrate and sleep. Prior Functional Status Baseline Function- ADL's Independent Baseline Function- Mobility Independent Baseline Function- Other Able to sleep 8-10 hrs of restful sleep. 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 Functional Limitations- Other Sleeps 6 hrs/night, tossing and turning. 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 Therapy/Recovery Psoriatic Arthritis. PT-OP-C Subjective Start: 11/26/21 19:48 Freq: Status: Active Protocol: Document 12/20/21 15:23 LRN (Rec: 12/20/21 16:25 N [id number]) OP-PT Subjective Patient Comments Patient Comments Not as pinchy. Pinch comes with head in ext and L rot. PT-OP-H Neuro Start: 11/26/21 19:48 Freq: Status: Active Protocol: Document 12/09/21 15:20 LRN (Rec: 12/09/21 16:38 LRN [id number]) Deep Tendon Reflex & Clonus Assessment Deep Tendon Reflex Right Bicep Deep Tendon Reflex 2+ Normal Left Bicep Deep Tendon Reflex 2+ Normal Right Brachioradialis Deep Tendon Reflex 2+ Normal Left Brachioradialis Deep Tendon Reflex 0 Absent PT-OP-J Posture/Palpation/Skin Start: 11/26/21 19:48 Freq: Status: Active Protocol: Document 12/03/21 14:37 LRN (Rec: 12/03/21 16:10 LRN [id number]) Posture Evaluation Position Standing Head/C-Spine Posture Neutral Position T-Spine Posture Neutral L-Spine Posture Neutral Shoulder Posture Neutral Arm Posture (L) Internally Rotated,(R) Internally Rotated Hip Posture (L) Externally Rotated,(R) Externally Rotated Comments Posture Comments Well developed calves, LE's in slight ER. Palpation Assessment Location Posterior Neck Palpation Location L Cervical paraspinals Palpation Findings Muscle Guarding,Tenderness Medial superior angle of L scapula Palpation Location Lev Scap & UT Palpation Findings Muscle Guarding,Tenderness PT-OP-K Range of Motion Start: 11/26/21 19:48 Freq: Status: Active Protocol: Document 12/03/21 14:37 LRN (Rec: 12/03/21 16:10 [facility] [id number]) Cervical Spine Range of Motion Cervical Spine Active Degrees Testing Position Sitting Flexion 42 Extension 45 Rotation Left 55 Rotation Right 65 Lateral Flexion Left 52 Lateral Flexion Right 32 ROM Limitations Soft Tissue Tightness Comments Flex feels tightness of ms on Left (lev scap) Shoulder Goniometric Range of Motion Shoulder Right Active Shoulder ROM WFL Yes Testing Position Sitting Flexion 180 Abduction 180 External Rotation at 0 degrees Abduction 75 Internal Rotation Behind Back (text) T7 Left Active Shoulder ROM WFL Yes Testing Position Sitting Flexion 180 Extension 180 External Rotation at 0 degrees Abduction 65 Internal Rotation Behind Back (text) T7 PT-OP-L Special Tests Start: 11/26/21 19:48 Freq: Status: Active Protocol: Document 12/03/21 14:37 LRN (Rec: 12/03/21 16:10 LRN [id number]) Special Tests Cervical Spine Special Tests Upper Limb Tension Test Test Results - Spurling's Test Test Results + Left Traction Test Results + Comments Decreased discomfort Foraminal Compression Test Results - Vertebral Artery Test Results - bilaterally PT-OP-M Strength Start: 11/26/21 19:48 Freq: Status: Active Protocol: Document 12/03/21 14:37 LRN (Rec: 12/03/21 16:10 LRN [id number]) Cervical Spine Strength Cervical Spine Manual Muscle Testing Testing Position Sitting Flexion (C1-2) 5 Normal Extension 5 Normal Rotation Left 5 Normal Rotation Right 4+ Good+ Lateral Flexion Left (C3) 5 Normal Lateral Flexion Right (C3) 5 Normal PT-OP-Q Treatments Start: 11/26/21 19:48 Freq: Status: Active Protocol: Document 12/20/21 15:23 LRN (Rec: 12/20/21 16:25 LRN [id number]) Therapeutic Exercises Sitting Exercises Trunk FB stretch Sitting Exercise Name Hands between legs Side bilateral Reps/Minutes 5' C. AROM Sitting Exercise Name C. AROM for rot between MWM bouts. Side bilateral Reps/Minutes 5' Other Exercises 4 pt Other Exercise Name Cat/Camel w/head in slight extension & Wag the tail Reps/Minutes 5' Manual Therapy Treatment Joint Mobilizations C/S Joint T3, T4, T5 and balancing of lat.dorsi Direction Correcting a thoracic L rot and tight L Lat. Grade III Body Position Prone Comments Pinch at ext/L rot. Manual Techniques MWM C3-C4 facet Type MWM C3-C4 facet clearing Body Position Sitting Reps/Duration 10x between bouts of C AROM MWM Type MWM (see below) between bouts of active T/S flex/ext Comments 1) Lift of C3 on C4 w/head in ext moving to L Sidebend & L rotation. PT-OP-R Modalities Start: 11/26/21 19:48 Freq: Status: Active Protocol: Document 12/20/21 15:23 LRN (Rec: 12/20/21 16:25 LRN [id number]) Ultrasound Therapy Treatment Upper back Treatment Duration (minutes) 8 Patient Position Prone Applicator Size (cm2) 10 Mode Setting Pulsed Duty Cycle 50% Intensity Setting (w/cm2) 1.5 Comments 4' T3, T4: 4' L, 2' R, 2' Left Lev Scap region up to neck. US to neck/upper shoulder (L C . paraspinals, Lev Scap, UT) to decrease ms tone, PT-OP-T Assessment and Plan Start: 11/26/21 19:48 Freq: Status: Active Protocol: Document 12/20/21 15:23 LRN (Rec: 12/20/21 16:25 LRN [id number]) Physical Therapy Assessment Goals Three Impairment L neck/shoulder pain hindering function and ability to sleep Impairment Pt sleeps 6 hrs/night. Initial Quickdash Score 22.72 (20-39% impaired, score 20-39) Short Term Goal (STG) Decrease pain with improved ability to concentrate. STG Duration 12/31/21 Medical Appointment Scheduler Goal (LTG) Decrease pain to 0/10 with pt able to improve restful sleep to 8-10 hrs per night. (12/17/21: Wifes states he is tossing and turning less). LTG Duration 02/01/22 (12/17/21: Progressing) Two Impairment Decreased cervical mobility Impairment (in deg's) Rot: L 55, R 65 (in deg's) SB: L 52, R 32 (in deg's) Shoulder ER ( sitting): L 65, R 75. Initial Neck Disability Score -18 (20-39% impaired, score 10 -19) Medical Appointment Scheduler Goal (LTG) Pt will demonstrate symmetrical Cervical AROM with improved function for flying. LTG Duration 02/01/22 One Impairment Lacks self care HEP Impairment Decreased C. R rot endurance strength Halfway Goal (LTG) Pt will be independent with a self care HEP of neck/shoulder ROM & stabilization exercises . (12/09/21: I/S in HEP: C. AROM for ext, SB, rot) LTG Duration 02/01/22 (12/09/21: Progressed ) Progress Towards Goals Progress Comments Pt able to perform neck ext without pain or pinching. Assessment Summary Assessment Pain zone is decreasing, ache is starting to taper off. Pain/pinch at neck ext and chin to L ~45 deg's or neck ext and L SB (facet). After STM, pt appears to rot neck L> R, but pt percieves R rot as being restrictive. Physical Therapy Plan Frequency and Duration Frequency of Treatment 2x/Week Plan of Care Start Date 12/03/21 Plan of Care End Date 02/01/22 Next Visit Focus/Plan Next Note Type Treatment Note Next Visit Plan Next tx: Assess response to US & CS rotation, add C/S rot with nods for active MWM ROM. CS and scap complex stabilization. POC: US to neck/upper shoulder (L C. paraspinals, Lev Scap, UT) to decrease ms tone, Assess response to manual traction, education in nighttime positioning using pillows or towel roll around head (small roll under neck), and result of driving to [place] with recommended positioning. Assess use of MH/Cryotherapy for pain management, which works best. f/b JMT of C3-C4, traction at C5.
--- NOTE | 2021-12-23 16:51 | PT.OTN ---
Current Diagnoses Cervicalgia (12/23/21) Physical Therapy Treatment Note PT-OP-A Visit Information Start: 11/26/21 19:48 Freq: Status: Active Protocol: Document 12/23/21 15:30 LRN (Rec: 12/23/21 16:49 LRN [id number]) Out-Patient Physical Therapy Visit Information Visit Information Visit Type Treatment Note Visit Start Time 15:30 Visit Stop Time 16:20 Total Visit Minutes 50 Visit Number 6 Evaluation Information Evaluation Date 12/03/21 Precautions Precautions Psoriatic Arthritis. PMH: 2 surgeries for L wrist - capsular release and debridement. PT-OP-B Current Condition Start: 11/26/21 19:48 Freq: Status: Active Protocol: Document 12/03/21 14:37 LRN (Rec: 12/03/21 16:10 LRN [id number]) Current Condition History of Current Condition Onset Date 2-3 months ago Current Complaints L neck/shoulder pain History of Current Condition No acurte injury. Recent increase in persistant, nagging, L Neck/shoulder pain. 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 Feels like something is pinched and engaged all the time. Pt has tried different pillows. Has a 4 yr old son that he still lifts and carries. Pt is R handed. Prior Treatments and Tests No prior treatments. Pt reports X-rays show slight narrowing of C4-C5. Treatment Goals Patient/Caregiver Goals Pt goals is: to determine cause and eliminate pain. Improve Cervical ROM Improve ability to concentrate and sleep. Prior Functional Status Baseline Function- ADL's Independent Baseline Function- Mobility Independent Baseline Function- Other Able to sleep 8-10 hrs of restful sleep. 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 Functional Limitations- Other Sleeps 6 hrs/night, tossing and turning. 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 Therapy/Recovery Psoriatic Arthritis. PT-OP-C Subjective Start: 11/26/21 19:48 Freq: Status: Active Protocol: Document 12/23/21 15:30 LRN (Rec: 12/23/21 16:49 N [id number]) OP-PT Subjective Patient Comments Patient Comments States he was lying on his R side with his head in L SB so his neck was kinked. He still has a pain range with neck ext and L SB. PT-OP-H Neuro Start: 11/26/21 19:48 Freq: Status: Active Protocol: Document 12/09/21 15:20 LRN (Rec: 12/09/21 16:38 LRN [id number]) Deep Tendon Reflex & Clonus Assessment Deep Tendon Reflex Right Bicep Deep Tendon Reflex 2+ Normal Left Bicep Deep Tendon Reflex 2+ Normal Right Brachioradialis Deep Tendon Reflex 2+ Normal Left Brachioradialis Deep Tendon Reflex 0 Absent PT-OP-J Posture/Palpation/Skin Start: 11/26/21 19:48 Freq: Status: Active Protocol: Document 12/03/21 14:37 LRN (Rec: 12/03/21 16:10 LRN [id number]) Posture Evaluation Position Standing Head/C-Spine Posture Neutral Position T-Spine Posture Neutral L-Spine Posture Neutral Shoulder Posture Neutral Arm Posture (L) Internally Rotated,(R) Internally Rotated Hip Posture (L) Externally Rotated,(R) Externally Rotated Comments Posture Comments Well developed calves, LE's in slight ER. Palpation Assessment Location Posterior Neck Palpation Location L Cervical paraspinals Palpation Findings Muscle Guarding,Tenderness Medial superior angle of L scapula Palpation Location Lev Scap & UT Palpation Findings Muscle Guarding,Tenderness PT-OP-K Range of Motion Start: 11/26/21 19:48 Freq: Status: Active Protocol: Document 12/03/21 14:37 LRN (Rec: 12/03/21 16:10 N [id number]) Cervical Spine Range of Motion Cervical Spine Active Degrees Testing Position Sitting Flexion 42 Extension 45 Rotation Left 55 Rotation Right 65 Lateral Flexion Left 52 Lateral Flexion Right 32 ROM Limitations Soft Tissue Tightness Comments Flex feels tightness of ms on Left (lev scap) Shoulder Goniometric Range of Motion Shoulder Right Active Shoulder ROM WFL Yes Testing Position Sitting Flexion 180 Abduction 180 External Rotation at 0 degrees Abduction 75 Internal Rotation Behind Back (text) T7 Left Active Shoulder ROM WFL Yes Testing Position Sitting Flexion 180 Extension 180 External Rotation at 0 degrees Abduction 65 Internal Rotation Behind Back (text) T7 PT-OP-L Special Tests Start: 11/26/21 19:48 Freq: Status: Active Protocol: Document 12/03/21 14:37 LRN (Rec: 12/03/21 16:10 LRN [id number]) Special Tests Cervical Spine Special Tests Upper Limb Tension Test Test Results - Spurling's Test Test Results + Left Traction Test Results + Comments Decreased discomfort Foraminal Compression Test Results - Vertebral Artery Test Results - bilaterally PT-OP-M Strength Start: 11/26/21 19:48 Freq: Status: Active Protocol: Document 12/03/21 14:37 LRN (Rec: 12/03/21 16:10 LRN [id number]) Cervical Spine Strength Cervical Spine Manual Muscle Testing Testing Position Sitting Flexion (C1-2) 5 Normal Extension 5 Normal Rotation Left 5 Normal Rotation Right 4+ Good+ Lateral Flexion Left (C3) 5 Normal Lateral Flexion Right (C3) 5 Normal PT-OP-Q Treatments Start: 11/26/21 19:48 Freq: Status: Active Protocol: Document 12/23/21 15:30 LRN (Rec: 12/23/21 16:49 LRN [id number]) Manual Therapy Treatment Soft Tissue Mobilization T/S Body Location T2-T4 AP and balancing at anterior ribs Mobilization Type Manual Lymphatic Drainage, Sustained Pressure Body Position Supine L Pec stretch Body Location L pec stretch Mobilization Type Myofascial Release,Sustained Pressure Body Position Supine L Scalenes Body Location L scalenes stretching Mobilization Type Manual Lymphatic Drainage, Sustained Pressure Body Position Supine Taping K-tape to neck Body Location Neck - I strip: R T3-T4 TrP across neck to L T2-T3 level. Treatment Focus Assist on R TrP to lift and L rot at C3-C4. Type of Tape Kinesio Tape Skin Inspection Good Comments Pt I/S in safe & proper wear time and removal of K-tape. I/S pt in safe & proper application of tape and K-tape issued for if tape comes off. Pt educated and pros/cons of K -tape use and for recognition of allergic reaction with I/S to remove immediately if reaction occurs. Self-Care/Home Management Treatment Education Other Education Quick review of proper head/ neck positioning at all times and cautioned pt to avoid head tilts when in sidelie. PT-OP-R Modalities Start: 11/26/21 19:48 Freq: Status: Active Protocol: Document 12/23/21 15:30 LRN (Rec: 12/23/21 16:49 LRN [id number]) Ultrasound Therapy Treatment Upper back Treatment Duration (minutes) 8 Patient Position Prone Applicator Size (cm2) 10 Mode Setting Pulsed Duty Cycle 50% Intensity Setting (w/cm2) 1.5 Comments 4' L T3, T4 paraspinals, 4' R T3, T4 paraspinals, 2' to L. Lev Scap region & C. paraspinals. PT-OP-T Assessment and Plan Start: 11/26/21 19:48 Freq: Status: Active Protocol: Document 12/23/21 15:30 LRN (Rec: 12/23/21 16:49 LRN [id number]) Physical Therapy Assessment Goals Three Impairment L neck/shoulder pain hindering function and ability to sleep Impairment Pt sleeps 6 hrs/night. Initial Quickdash Score 22.72 (20-39% impaired, score 20-39) Short Term Goal (STG) Decrease pain with improved ability to concentrate. STG Duration 12/31/21 Jail Goal (LTG) Decrease pain to 0/10 with pt able to improve restful sleep to 8-10 hrs per night. (12/17/21: Wifes states he is tossing and turning less). LTG Duration 02/01/22 (12/17/21: Progressing) Two Impairment Decreased cervical mobility Impairment (in deg's) Rot: L 55, R 65 (in deg's) SB: L 52, R 32 (in deg's) Shoulder ER ( sitting): L 65, R 75. Initial Neck Disability Score -18 (20-39% impaired, score 10 -19) Jail Goal (LTG) Pt will demonstrate symmetrical Cervical AROM with improved function for flying. LTG Duration 02/01/22 One Impairment Lacks self care HEP Impairment Decreased C. R rot endurance strength Commercial Relief Driver Goal (LTG) Pt will be independent with a self care HEP of neck/shoulder ROM & stabilization exercises . (12/09/21: I/S in HEP: C. AROM for ext, SB, rot) LTG Duration 02/01/22 (12/09/21: Progressed ) Progress Towards Goals Progress Comments No pain with C. around the clock after treatment. Assessment Summary Assessment Pt appears to be aware of proper head/neck positioning, but may need quick review of nighttime head/neck positioning using pillows or towel roll around head (small roll under neck). No significant change from previous manual cervical traction; therefore discontinue. Pt I/S no need to use MH to K-tape to improve adhesion if he is going running. Physical Therapy Plan Frequency and Duration Frequency of Treatment 2x/Week Plan of Care Start Date 12/03/21 Plan of Care End Date 02/01/22 Next Visit Focus/Plan Next Note Type Treatment Note Next Visit Plan Next tx: Check pain. Start C/ S and scapular stab if no pain . Assess response to K-tape, quick review of nighttime head /neck positioning. Add C/S rot with nods for active MWM ROM. C/S and scap complex stabilization. POC: US to neck/upper shoulder (L C. paraspinals, Lev Scap, UT) to decrease ms tone, Assess result of driving to [place] with recommended positioning. Assess use of MH/Cryotherapy for pain management, which works best. f/b JMT of C3-C4, traction at C5.
--- NOTE | 2021-12-30 15:25 | PT.OTN ---
Current Diagnoses Cervicalgia (12/30/21) Physical Therapy Treatment Note PT-OP-A Visit Information Start: 11/26/21 19:48 Freq: Status: Active Protocol: Document 12/30/21 14:37 SP (Rec: 12/30/21 15:45 SP [id number]) Out-Patient Physical Therapy Visit Information Visit Information Visit Type Treatment Note Visit Note AMLAS James attended tx, assisted with US application with permission pt with direct supervision throughout tx by TONYA Garrett, observed manual and Ther ex instruction by TONYA Garrett. Visit Start Time 14:37 Visit Stop Time 15:25 Total Visit Minutes 48 Visit Number 7 Number of MUCK MINER Visits 1 Evaluation Information Evaluation Date 12/03/21 Precautions Precautions Psoriatic Arthritis. PMH: 2 surgeries for L wrist - capsular release and debridement. PT-OP-B Current Condition Start: 11/26/21 19:48 Freq: Status: Active Protocol: Document 12/03/21 14:37 LRN (Rec: 12/03/21 16:10 LRN [id number]) Current Condition History of Current Condition Onset Date 2-3 months ago Current Complaints L neck/shoulder pain History of Current Condition No acurte injury. Recent increase in persistant, nagging, L Neck/shoulder pain. 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 Feels like something is pinched and engaged all the time. Pt has tried different pillows. Has a 4 yr old son that he still lifts and carries. Pt is R handed. Prior Treatments and Tests No prior treatments. Pt reports X-rays show slight narrowing of C4-C5. Treatment Goals Patient/Caregiver Goals Pt goals is: to determine cause and eliminate pain. Improve Cervical ROM Improve ability to concentrate and sleep. Prior Functional Status Baseline Function- ADL's Independent Baseline Function- Mobility Independent Baseline Function- Other Able to sleep 8-10 hrs of restful sleep. 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 Functional Limitations- Other Sleeps 6 hrs/night, tossing and turning. 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 Therapy/Recovery Psoriatic Arthritis. PT-OP-C Subjective Start: 11/26/21 19:48 Freq: Status: Active Protocol: Document 12/30/21 14:37 SP (Rec: 12/30/21 15:45 SP [id number]) OP-PT Subjective Patient Comments Patient Comments Pt reports doing HEP, getting some pinching on L lateral neck when moves head back and to L but fighting more tightness R side neck spinal column today. Pt reports the K taping amazingly helps alot over upper mid back and wants MUCK MINER reapply, did utilize what was given for home since last tx. PT-OP-H Neuro Start: 11/26/21 19:48 Freq: Status: Active Protocol: Document 12/09/21 15:20 LRN (Rec: 12/09/21 16:38 LRN [id number]) Deep Tendon Reflex & Clonus Assessment Deep Tendon Reflex Right Bicep Deep Tendon Reflex 2+ Normal Left Bicep Deep Tendon Reflex 2+ Normal Right Brachioradialis Deep Tendon Reflex 2+ Normal Left Brachioradialis Deep Tendon Reflex 0 Absent PT-OP-J Posture/Palpation/Skin Start: 11/26/21 19:48 Freq: Status: Active Protocol: Document 12/03/21 14:37 LRN (Rec: 12/03/21 16:10 LRN [id number]) Posture Evaluation Position Standing Head/C-Spine Posture Neutral Position T-Spine Posture Neutral L-Spine Posture Neutral Shoulder Posture Neutral Arm Posture (L) Internally Rotated,(R) Internally Rotated Hip Posture (L) Externally Rotated,(R) Externally Rotated Comments Posture Comments Well developed calves, LE's in slight ER. Palpation Assessment Location Posterior Neck Palpation Location L Cervical paraspinals Palpation Findings Muscle Guarding,Tenderness Medial superior angle of L scapula Palpation Location Lev Scap & UT Palpation Findings Muscle Guarding,Tenderness PT-OP-K Range of Motion Start: 11/26/21 19:48 Freq: Status: Active Protocol: Document 12/03/21 14:37 LRN (Rec: 12/03/21 16:10 LRN [id number]) Cervical Spine Range of Motion Cervical Spine Active Degrees Testing Position Sitting Flexion 42 Extension 45 Rotation Left 55 Rotation Right 65 Lateral Flexion Left 52 Lateral Flexion Right 32 ROM Limitations Soft Tissue Tightness Comments Flex feels tightness of ms on Left (lev scap) Shoulder Goniometric Range of Motion Shoulder Right Active Shoulder ROM WFL Yes Testing Position Sitting Flexion 180 Abduction 180 External Rotation at 0 degrees Abduction 75 Internal Rotation Behind Back (text) T7 Left Active Shoulder ROM WFL Yes Testing Position Sitting Flexion 180 Extension 180 External Rotation at 0 degrees Abduction 65 Internal Rotation Behind Back (text) T7 PT-OP-L Special Tests Start: 11/26/21 19:48 Freq: Status: Active Protocol: Document 12/03/21 14:37 LRN (Rec: 12/03/21 16:10 LRN [id number]) Special Tests Cervical Spine Special Tests Upper Limb Tension Test Test Results - Spurling's Test Test Results + Left Traction Test Results + Comments Decreased discomfort Foraminal Compression Test Results - Vertebral Artery Test Results - bilaterally PT-OP-M Strength Start: 11/26/21 19:48 Freq: Status: Active Protocol: Document 12/03/21 14:37 LRN (Rec: 12/03/21 16:10 LRN [id number]) Cervical Spine Strength Cervical Spine Manual Muscle Testing Testing Position Sitting Flexion (C1-2) 5 Normal Extension 5 Normal Rotation Left 5 Normal Rotation Right 4+ Good+ Lateral Flexion Left (C3) 5 Normal Lateral Flexion Right (C3) 5 Normal PT-OP-Q Treatments Start: 11/26/21 19:48 Freq: Status: Active Protocol: Document 12/30/21 14:37 SP (Rec: 12/30/21 15:45 SP [id number]) Therapeutic Exercises Standing Exercises daily dozen- yoga AROM Standing Exercise Name triangle/rev triangle (see HO) Resistance HEP reviewed TS AROM Reps/Minutes 3 min Comments good feedback response to TS rotation end tx. Other Exercises 4 pt Other Exercise Name Cat/Camel w/head in slight extension & Wag the tail Reps/Minutes 5 min Comments cued incorporate CS ext neutral and SB for full spinal - good feedbk stretch Manual Therapy Treatment Soft Tissue Mobilization T/S Body Location B T2-T4 med>lat, Rhomboids, ES , Serr Post Superior Mobilization Type Myofascial Release,Sustained Pressure Body Position Prone L Pec stretch Body Location L pec stretch Mobilization Type Myofascial Release,Sustained Pressure Body Position Supine L Scalenes Body Location L scalenes stretching Mobilization Type Manual Lymphatic Drainage, Sustained Pressure Body Position Supine Joint Mobilizations PA T2-4 Grade II Body Position Prone Comments gentle ROM, painfree Taping K-tape to neck Body Location Neck - I strip: R T3-T4 TrP across neck to L T2-T3 level. Treatment Focus Assist on R TrP to lift and L rot at C3-C4. Type of Tape Kinesio Tape Skin Inspection Good Comments Pt I/S in safe & proper wear time and removal of K-tape. Reviewed K-tape use and for recognition of allergic reaction with I/S to remove immediately if reaction occurs . Pt reports feels get more ROM into rotation. Self-Care/Home Management Treatment Education Patient Education Body Mechanics,Joint Protection,Pain Management, Posture Other Education Review of proper head/neck positioning at all times: rolled towel/ noodle under neck, small folded towel/flat pillow under ribcage for mid back alignment support for support spinal alignment, states arms are at sides. PT-OP-R Modalities Start: 11/26/21 19:48 Freq: Status: Active Protocol: Document 12/30/21 14:37 SP (Rec: 12/30/21 15:45 SP [id number]) Ultrasound Therapy Treatment Upper back Treatment Duration (minutes) 8 Patient Position Prone Applicator Size (cm2) 10 Mode Setting Pulsed Duty Cycle 50% Intensity Setting (w/cm2) 1.5 Comments 2' L T3, T4 paraspinals, 2' R T3, T4 paraspinals, 6' to L. Lev Scap region & C. paraspinals. PT-OP-T Assessment and Plan Start: 11/26/21 19:48 Freq: Status: Active Protocol: Document 12/30/21 14:37 SP (Rec: 12/30/21 15:45 SP [id number]) Physical Therapy Assessment Goals Three Impairment L neck/shoulder pain hindering function and ability to sleep Impairment Pt sleeps 6 hrs/night. Initial Quickdash Score 22.72 (20-39% impaired, score 20-39) Short Term Goal (STG) Decrease pain with improved ability to concentrate. STG Duration 12/31/21 Electronic Console Display Operator Goal (LTG) Decrease pain to 0/10 with pt able to improve restful sleep to 8-10 hrs per night. (12/17/21: Wifes states he is tossing and turning less). LTG Duration 02/01/22 (12/17/21: Progressing) Two Impairment Decreased cervical mobility Impairment (in deg's) Rot: L 55, R 65 (in deg's) SB: L 52, R 32 (in deg's) Shoulder ER ( sitting): L 65, R 75. Initial Neck Disability Score -18 (20-39% impaired, score 10 -19) Shelter Goal (LTG) Pt will demonstrate symmetrical Cervical AROM with improved function for flying. LTG Duration 02/01/22 One Impairment Lacks self care HEP Impairment Decreased C. R rot endurance strength Electronic Console Display Operator Goal (LTG) Pt will be independent with a self care HEP of neck/shoulder ROM & stabilization exercises . (12/09/21: I/S in HEP: C. AROM for ext, SB, rot) LTG Duration 02/01/22 (12/09/21: Progressed ) Assessment Summary Assessment Pt good feedback response to manual, US and K taping, reviewed standing TS rotation, painfree and more freedom to L rotation CS before leaving. Pt good understanding of use of pillows and will trial small flat under ribcage for mid thoracis support and rolled towel bottom pillow for head neutral on sidelying. Physical Therapy Plan Frequency and Duration Frequency of Treatment 2x/Week Plan of Care Start Date 12/03/21 Plan of Care End Date 02/01/22 Therapeutic Interventions Therapeutic Interventions Home Exercise Program,Joint Mobilizations,Manual Therapy, Neuromuscular Re-education, Patient/Caregiver Education, Self-Care/Home Management,Soft Tissue Mobilization,Taping, Therapeutic Activities, Therapeutic Exercises Modalities Traction- Mechanical, Ultrasound Next Visit Focus/Plan Next Note Type Treatment Note Next Visit Plan Next tx: Check pain. Start C/ S and scapular stab if no pain . Add C/S rot with nods for active MWM ROM. C/S and scap complex stabilization. POC: US to neck/upper shoulder (L C. paraspinals, Lev Scap, UT) to decrease ms tone, Assess result of driving to [employer] with recommended positioning. Assess use of MH/Cryotherapy for pain management, which works best. f/b JMT of C3-C4, traction at C5.
--- NOTE | 2022-05-10 17:24 | PT.OPDS ---
Current Diagnoses Cervicalgia (12/30/21) Visit Care Team Role Provider Type Sukhwinder Nassar Attending Provider Non-Staff Family Provider Primary Care Provider Referring Provider Specialty: Medical Address: [address] [place] [address], [facility] Email: Visit Number Visit Number 7 Discharge Summary PT-OP-B Current Condition Start: 11/26/21 19:48 Freq: Status: Active Protocol: Document 12/03/21 14:37 LRN (Rec: 12/03/21 16:10 LRN [id number]) Current Condition History of Current Condition Onset Date 2-3 months ago Current Complaints L neck/shoulder pain History of Current Condition No acurte injury. Recent increase in persistant, nagging, L Neck/shoulder pain. 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 Feels like something is pinched and engaged all the time. Pt has tried different pillows. Has a 4 yr old son that he still lifts and carries. Pt is R handed. Prior Treatments and Tests No prior treatments. Pt reports X-rays show slight narrowing of C4-C5. Treatment Goals Patient/Caregiver Goals Pt goals is: to determine cause and eliminate pain. Improve Cervical ROM Improve ability to concentrate and sleep. Prior Functional Status Baseline Function- ADL's Independent Baseline Function- Mobility Independent Baseline Function- Other Able to sleep 8-10 hrs of restful sleep. 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 Functional Limitations- Other Sleeps 6 hrs/night, tossing and turning. 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 Therapy/Recovery Psoriatic Arthritis. PT-OP-C Subjective Start: 11/26/21 19:48 Freq: Status: Active Protocol: Document 12/30/21 14:37 SP (Rec: 12/30/21 15:45 SP [id number]) OP-PT Subjective Patient Comments Patient Comments Pt reports doing HEP, getting some pinching on L lateral neck when moves head back and to L but fighting more tightness R side neck spinal column today. Pt reports the K taping amazingly helps alot over upper mid back and wants [employer] reapply, did utilize what was given for home since last tx. PT-OP-H Neuro Start: 11/26/21 19:48 Freq: Status: Active Protocol: Document 12/09/21 15:20 LRN (Rec: 12/09/21 16:38 LRN [id number]) Deep Tendon Reflex & Clonus Assessment Deep Tendon Reflex Right Bicep Deep Tendon Reflex 2+ Normal Left Bicep Deep Tendon Reflex 2+ Normal Right Brachioradialis Deep Tendon Reflex 2+ Normal Left Brachioradialis Deep Tendon Reflex 0 Absent PT-OP-J Posture/Palpation/Skin Start: 11/26/21 19:48 Freq: Status: Active Protocol: Document 12/03/21 14:37 LRN (Rec: 12/03/21 16:10 LRN [id number]) Posture Evaluation Position Standing Head/C-Spine Posture Neutral Position T-Spine Posture Neutral L-Spine Posture Neutral Shoulder Posture Neutral Arm Posture (L) Internally Rotated,(R) Internally Rotated Hip Posture (L) Externally Rotated,(R) Externally Rotated Comments Posture Comments Well developed calves, LE's in slight ER. Palpation Assessment Location Posterior Neck Palpation Location L Cervical paraspinals Palpation Findings Muscle Guarding,Tenderness Medial superior angle of L scapula Palpation Location Lev Scap & UT Palpation Findings Muscle Guarding,Tenderness PT-OP-K Range of Motion Start: 11/26/21 19:48 Freq: Status: Active Protocol: Document 12/03/21 14:37 LRN (Rec: 12/03/21 16:10 LRN [id number]) Cervical Spine Range of Motion Cervical Spine Active Degrees Testing Position Sitting Flexion 42 Extension 45 Rotation Left 55 Rotation Right 65 Lateral Flexion Left 52 Lateral Flexion Right 32 ROM Limitations Soft Tissue Tightness Comments Flex feels tightness of ms on Left (lev scap) Shoulder Goniometric Range of Motion Shoulder Right Active Shoulder ROM WFL Yes Testing Position Sitting Flexion 180 Abduction 180 External Rotation at 0 degrees Abduction 75 Internal Rotation Behind Back (text) T7 Left Active Shoulder ROM WFL Yes Testing Position Sitting Flexion 180 Extension 180 External Rotation at 0 degrees Abduction 65 Internal Rotation Behind Back (text) T7 PT-OP-L Special Tests Start: 11/26/21 19:48 Freq: Status: Active Protocol: Document 12/03/21 14:37 LRN (Rec: 12/03/21 16:10 LRN [id number]) Special Tests Cervical Spine Special Tests Upper Limb Tension Test Test Results - Spurling's Test Test Results + Left Traction Test Results + Comments Decreased discomfort Foraminal Compression Test Results - Vertebral Artery Test Results - bilaterally PT-OP-M Strength Start: 11/26/21 19:48 Freq: Status: Active Protocol: Document 12/03/21 14:37 LRN (Rec: 12/03/21 16:10 LRN [id number]) Cervical Spine Strength Cervical Spine Manual Muscle Testing Testing Position Sitting Flexion (C1-2) 5 Normal Extension 5 Normal Rotation Left 5 Normal Rotation Right 4+ Good+ Lateral Flexion Left (C3) 5 Normal Lateral Flexion Right (C3) 5 Normal PT-OP-T Assessment and Plan Start: 11/26/21 19:48 Freq: Status: Active Protocol: Document 05/10/22 17:16 LRN (Rec: 05/10/22 17:24 LRN [id number]) Physical Therapy Assessment Goals Three Impairment L neck/shoulder pain hindering function and ability to sleep Impairment Pt sleeps 6 hrs/night. Initial Quickdash Score 22.72 (20-39% impaired, score 20-39) Short Term Goal (STG) Decrease pain with improved ability to concentrate. STG Duration 12/31/21 (05/10/22: pt unavailable for final assessment) Correction Goal (LTG) Decrease pain to 0/10 with pt able to improve restful sleep to 8-10 hrs per night. (12/17/21: Wifes states he is tossing and turning less). LTG Duration 02/01/22 (05/10/22:pt unavailable for final assessment) Two Impairment Decreased cervical mobility Impairment (in deg's) Rot: L 55, R 65 (in deg's) SB: L 52, R 32 (in deg's) Shoulder ER ( sitting): L 65, R 75. Initial Neck Disability Score -18 (20-39% impaired, score 10 -19) Correction Goal (LTG) Pt will demonstrate symmetrical Cervical AROM with improved function for flying. LTG Duration 02/01/22 (05/10/22:pt unavailable for final assessment) One Impairment Lacks self care HEP Impairment Decreased C. 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 (12/09/21: I/S in HEP: C. AROM for ext, SB, rot) LTG Duration 02/01/22 (05/10/22:pt unavailable for final assessment) Assessment Summary Assessment Pt was seen for 6 treatment visits and was last seen . The pt did not schedule further visits and has not reached out for further therapy. He has not been seen for 4+ months; therefore he is being discharged from therapy. The pt was unavailable for final assessment. The pt will need a new referral to return to PT . Physical Therapy Plan Discharge Physical Therapy Discharge Reasons No Longer Attending PT Discharge Comments Pt will need a new referral to continue his rehabilitation. Thank you for your referral.
== END 2022-05-12 13:48 | disposition home or self-care (01) ==
LOC: PHYS 14:30
PROVIDERS: Family Provider Student in an Organized Health Care Education/Training Program; PCP Student in an Organized Health Care Education/Training Program; Referring Provider Student in an Organized Health Care Education/Training Program; Visit Provider Student in an Organized Health Care Education/Training Program
DX: M54.2 Cervicalgia (principal)
CPT/HCPCS: 97035; 97110; 97140; 97162; 97535

== ENCOUNTER 2022-07-27 16:36 | Emergency (ER) | payer OTHER, SELFPAY ==
[2022-07-27 16:54] VITALS: BP 139/91; PULSE 82; RESP 18; TEMP 36.6; O2SAT 98; BMI 29.2
--- NOTE | 2022-07-27 18:20 | ED.URI ---
HPI - URI/Sore Throat <PATRICIA Ritter - Last Filed: 07/27/22 18:32> General Chief Complaint: Nasal Problem Stated Complaint: probable sinus infection Time Seen by Provider: 07/27/22 18:03 Source: patient Mode of arrival: Ambulatory History of Present Illness HPI Narrative: This is a 42-year-old male who presents emergency department complaining of worsening sinus tenderness, sinus congestion and nasal discharge over the last 3 days. Related Data Previous Rx's Medication Instructions Recorded hydrocodone 5 mg-acetaminophen 325 1 tab PO Q6H PRN pain #10 tabs 01/10/21 mg tablet ondansetron 4 mg disintegrating 4 mg PO Q8H PRN nausea and 10/05/21 tablet vomiting #10 tabs cetirizine 10 mg tablet 10 mg PO DAILY PRN allergy 07/27/22 symptoms #30 tabs fluticasone propionate 50 1 spray intranasal DAILY PRN nasal 07/27/22 mcg/actuation nasal congestion #16 grams spray,suspension Allergies Allergy/AdvReac Type Severity Reaction Status Date / Time No Known Drug Allergies Allergy Verified 01/10/21 10:23 Review of Systems <PATRICIA Ritter - Last Filed: 07/27/22 18:32> Review of Systems ROS Unobtainable: All systems reviewed & are unremarkable except as noted in HPI and below Patient History <PATRICIA Ritter - Last Filed: 07/27/22 18:32> Social History Smoking Status: Never smoker Smoking Status: Never smoker alcohol intake frequency: holidays/special occasions only Substance Use Type: does not use Exam <PATRICIA Ritter - Last Filed: 07/27/22 18:32> Narrative Exam Narrative: Reviewed vitals signs and nursing notes. General: cooperative, comfortable, in no acute distress, well groomed HEENT: symmetrical facial expressions, moist mucous membranes, maxillary and frontal sinus tenderness to palpation, congestion, right conjunctival injection without discharge no mastoid tenderness bilaterally, no TM erythema or anterior cervical lymphadenopathy Respiratory: normal effort, able to speak in complete sentences, without wheezing, stridor, or abnormal breath sounds. No retractions or tachypnea. Skin: brisk capillary refill, without pallor or erythema Neuro: normal speech and cognition, A&O x3, ambulatory, clear speech Psych: mental status is grossly normal, congruent mood, normal affect, pleasant and cooperative Initial Vital Signs Initial Vital Signs: Vital Signs Temperature 97.8 F 07/27/22 16:54 Pulse Rate 82 07/27/22 16:54 Respiratory Rate 18 07/27/22 16:54 Blood Pressure 139/91 H 07/27/22 16:54 Pulse Oximetry 98 07/27/22 16:54 Oxygen Delivery Method 07/27/22 16:54 <Mitul Baeza DO - Last Filed: 07/28/22 07:18> Initial Vital Signs Initial Vital Signs: Vital Signs Temperature 97.8 F 07/27/22 16:54 Pulse Rate 82 07/27/22 16:54 Respiratory Rate 18 07/27/22 16:54 Blood Pressure 139/91 H 07/27/22 16:54 Pulse Oximetry 98 07/27/22 16:54 Oxygen Delivery Method 07/27/22 16:54 Course <PATRICIA Ritter - Last Filed: 07/27/22 18:32> Orders Ordered: Discontinued Medications Amoxicillin/Clavulanate Potassium (Amoxicillin/Clav 875/125 Mg) 1 tab PO NOW ONE Stop: 07/27/22 18:10 Last Admin: 07/27/22 18:59 Dose: 1 tab Documented By: CEASAR Dexamethasone (Dexamethasone 10 Mg/Ml Vial) 10 mg PO NOW ONE Stop: 07/27/22 18:10 Last Admin: 07/27/22 18:59 Dose: 10 mg Documented By: CEASAR Ketorolac Tromethamine (Ketorolac 10 Mg Tablet) 10 mg PO NOW ONE Stop: 07/27/22 18:10 Last Admin: 07/27/22 18:59 Dose: 10 mg Documented By: CEASAR Vital Signs Vital signs: Vital Signs - 8 hr 07/27/22 16:54 Temperature 97.8 F Pulse Rate 82 Respiratory Rate 18 Blood Pressure 139/91 H Pulse Oximetry 98 Oxygen Delivery Method Room Air <Mitul Baeza DO - Last Filed: 07/28/22 07:18> Orders Ordered: Discontinued Medications Amoxicillin/Clavulanate Potassium (Amoxicillin/Clav 875/125 Mg) 1 tab PO NOW ONE Stop: 07/27/22 18:10 Last Admin: 07/27/22 18:59 Dose: 1 tab Documented By: CEASAR Dexamethasone (Dexamethasone 10 Mg/Ml Vial) 10 mg PO NOW ONE Stop: 07/27/22 18:10 Last Admin: 07/27/22 18:59 Dose: 10 mg Documented By: CEASAR Ketorolac Tromethamine (Ketorolac 10 Mg Tablet) 10 mg PO NOW ONE Stop: 07/27/22 18:10 Last Admin: 07/27/22 18:59 Dose: 10 mg Documented By: CEASAR Vital Signs Vital signs: Vital Signs - 8 hr 07/27/22 16:54 Temperature 97.8 F Pulse Rate 82 Respiratory Rate 18 Blood Pressure 139/91 H Pulse Oximetry 98 Oxygen Delivery Method Room Air MDM - URI/Sore Throat <PATRICIA Ritter - Last Filed: 07/27/22 18:32> [facility] Narrative Medical decision making narrative: Chief Complaint: sinus tenderness Independent historian: Patient Differential diagnoses include but are not limited to: Acute/chronic Sinusitis, respiratory viral infection including COVID, influenza, and others,, pneumonia-bacterial or viral, croup, pertussis, asthma/reactive airway exacerbation, allergic reaction, acute otitis media, pharyngitis, bronchitis, GERD, dacryocystitis, periorbital cellulitis, postnasal drip. Do not suspect underlying cardiopulmonary process. Patient is nontoxic appearing and not in need of emergent medical intervention. Patient is tolerating p.o., Other possible diagnosis' considered: viral URI, influenza, COVID, pharyngitis, GERD, bronchitis, asthma, pertussis, medication side effect, postnasal discharge, sinusitis, appendicitis, dehydration. Recommended rest, hydration, tylenol and NSAIDS for fever and/or pain. Return to ED for worsening symptoms such as SOB, chest pain, inability to take adequate oral fluids, fever, or productive cough. I have independently reviewed the patient's vital signs and nursing notes as well as prior records if available. Course of care: Patient is currently on Augmentin as prescribed to him by his primary care provider for sinus congestion, tenderness and facial pain for the last 3 weeks. He has had 1 dose, prescribed for him fluticasone, cetirizine, and encouraged sinus rinses, hydration, these medications as needed for his symptoms and to follow-up with his PCP if his symptoms have not improved after his antibiotics. e was given his p.m. dose of Augmentin today in the emergency department and will continue with his abx the next 4 days as prescribed. He will [facility] up with [facility] prior to returning to duty, encouraged Tylenol and ibuprofen as needed for pain. He is given Decadron x1 for sinus congestion, inflammation and upper respiratory edema. He was given Toradol p.o. and Augmentin p.o.. Social considerations that may affect disposition: none Questions are addressed and there is agreement with the plan and for follow-up. Patient is appropriate for outpatient management. MIPS: #331 & 332: Antibiotic use with Sinusitis *if the second, third, or fourth prompt is selected, only then should the clinician see the sub-prompts addressing amoxicillin [] The patient has sinusitis and antibiotics are not indicated/not prescribed at this time. [SATISFIES MIPS PERFORMANCE] [x] The patient has sinusitis with symptom onset greater than 10 days ago and the patient was prescribed antibiotics. [SATISFIES MIPS PERFORMANCE] Discharge Plan Departure Patient Disposition: Home Clinical Impression: Sinusitis Qualifiers: Sinusitis location: frontal Chronicity: acute Recurrence: non-recurrent Qualified Code(s): J01.10 - Acute frontal sinusitis, unspecified Instructions: Sinusitis Activity Restrictions/Additional Instructions: *You have been diagnosed with a sinus infection. Please take this antibiotic twice a day for the next 5 days. Use Flonase morning and night to help decrease inflammation. Take Zyrtec each day to help decrease nasal congestion, use sinus rinses, allergy medication, Flonase as needed to improve your symptoms. 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 Use Zyrtec, Flonase, blow your nose frequently, ibuprofen and Tylenol as needed for your symptoms. *What to do: *Please continue to take your regular medications as directed. [ x] New medication prescriptions sent to your pharmacy: [ [facility]] [ ] New medication written as a paper prescription [ ] No new medications given *Please follow up with your primary care provider in 2-3 days, call for an appointment. Let them know you were seen in the Emergency Department and that we asked that you be seen for follow-up. We will electronically transmit a record of today's note if your PCP is in our system *If you do not have a primary care provider please contact [phone] to establish care with one of the [facility] primary care providers. *Return to Emergency Department if you should have any new, worsening, or concerning symptoms, such as [fever greater than 101F, chills, worsening pain, persistent vomiting or other bothersome symptoms]. Prescriptions: New fluticasone propionate 50 mcg/actuation spray,suspension 1 spray intranasal DAILY PRN (Reason: nasal congestion) Qty: 16 0RF Rx Instructions: administer into each nostril cetirizine 10 mg tablet 10 mg PO DAILY PRN (Reason: allergy symptoms) Qty: 30 0RF No Action hydrocodone-acetaminophen 5-325 mg tablet 1 tab PO Q6H PRN (Reason: pain) Qty: 10 0RF ondansetron 4 mg tablet,disintegrating 4 mg PO Q8H PRN (Reason: nausea and vomiting) Qty: 10 0RF Referrals: Sukhwinder Nassar [Primary Care Provider] - Stand Alone Forms: Patient Portal/API <Mitul Baeza DO - Last Filed: 07/28/22 07:18> Cosign ED Attending David Attestation: I was immediately available in the department for consultation. Documentation has been reviewed. I agree with assessment and plan.
[2022-07-27] MEDS: AMOXICILLIN/CLAV 875/125 MG 1 TAB PO (18:59)
[2022-07-27] MEDS: DEXAMETHASONE 10 MG/ML VIAL PO (18:59)
[2022-07-27] MEDS: KETOROLAC 10 MG TABLET PO (18:59)
--- NOTE | 2022-07-27 19:14 | PC.NURSE ---
Reports severe sinus pain and pressure greater on the right. Started on dose of abx. Reports feeling worse
[2022-07-27 19:15] VITALS: BP 132/56; PULSE 89; RESP 18; O2SAT 98
== END 2022-07-27 19:15 | disposition home or self-care (01) ==
PROVIDERS: Emergency Provider Nurse Practitioner Critical Care Medicine; Family Provider Student in an Organized Health Care Education/Training Program; PCP Student in an Organized Health Care Education/Training Program
DX: J01.10 Acute frontal sinusitis, unspecified (principal)
CPT/HCPCS: 99283; J1100

== ENCOUNTER 2022-10-13 08:47 | Emergency (ER) | payer OTHER, SELFPAY ==
[2022-10-13 08:57] VITALS: BP 126/82; PULSE 73; RESP 15; TEMP 36.6; O2SAT 96; BMI 29.2
[2022-10-13 10:27] VITALS: BP 127/86; PULSE 80; RESP 18; O2SAT 99
--- NOTE | 2022-10-13 11:04 | ED.EYEPROB ---
HPI - Eye Problem General Chief complaint: Eye Problems Stated complaint: pink eye LT T-1/sinus infection T-7 Time Seen by Provider: 10/13/22 10:56 Source: patient Mode of arrival: Ambulatory History of Present Illness HPI Narrative: Patient here for sinus pain as well as left eye conjunctivitis. Sinus pain is not new. Was seen here in July of this year for the same complaint and was already on Augmentin by his primary care physician. He has appointment in 2 weeks with otolaryngology. Patient does wear contact lenses. He is not wearing them now. Yesterday his child was ?blowing raspberries ?was essentially spitting and he felt the fluid/saliva go into his left eye. He awoke this morning with crusting and redness to the left eye. He has not been wearing his contact lenses. He took them out last night. Otherwise no changes in vision. Related Data Previous Rx's Medication Instructions Recorded hydrocodone 5 mg-acetaminophen 325 1 tab PO Q6H PRN pain #10 tabs 01/10/21 mg tablet ondansetron 4 mg disintegrating 4 mg PO Q8H PRN nausea and 10/05/21 tablet vomiting #10 tabs cetirizine 10 mg tablet 10 mg PO DAILY PRN allergy 07/27/22 symptoms #30 tabs fluticasone propionate 50 1 spray intranasal DAILY PRN nasal 07/27/22 mcg/actuation nasal congestion #16 grams spray,suspension ciprofloxacin HCl 0.3 % eye drops See Rx Instructions .Route 10/13/22 .COMPLEX #10 mL Allergies Allergy/AdvReac Type Severity Reaction Status Date / Time No Known Drug Allergies Allergy Verified 10/13/22 08:59 Review of Systems Review of Systems Narrative: GENERAL: negative chills, fatigue, malaise, fever, sweats. HEENT: Positive sinus pain, negative ear pain, sore throat, positive eye redness and discharge RESPIRATORY: negative dyspnea, cough CARDIOVASCULAR: negative chest pain, palpitations GASTROINTESTINAL: negative nausea, vomiting, abdominal pain : negative dysuria, frequency, hematuria MUSCULOSKELETAL: negative muscle or bony pain SKIN: negative rash, skin lesions NEUROLOGIC: negative weakness, numbness ROS Unobtainable: All systems reviewed & are unremarkable except as noted in HPI and below Patient History Social History Smoking Status: Never smoker Smoking Status: Never smoker alcohol intake frequency: holidays/special occasions only Substance Use Type: does not use Exam Narrative Exam Narrative: GENERAL: in no distress, not toxic not dyspneic, patient wearing eyeglasses, HEAD: Normocephalic. EYES: Pupils equal round examination left eye there is erythema of the conjunctiva and sclera. There is green crusting on the upper and lower eyelashes. PERRLA and EOMI, painless eye movement. ENT: Mucous membranes moist. There is mild tenderness to bilateral maxillary sinuses NECK: Trachea midline. NEURO: AOx4. SKIN: Warm and dry PSYCH: Not anxious, is cooperative Initial Vital Signs Initial Vital Signs: Vital Signs Temperature 97.8 F 10/13/22 08:57 Pulse Rate 73 10/13/22 08:57 Respiratory Rate 15 10/13/22 08:57 Blood Pressure 126/82 10/13/22 08:57 Pulse Oximetry 96 10/13/22 08:57 Oxygen Delivery Method Room Air 10/13/22 08:57 Course Vital Signs Vital signs: Vital Signs - 8 hr 10/13/22 08:57 10/13/22 10:27 Temperature 97.8 F Pulse Rate 73 80 Respiratory Rate 15 18 Blood Pressure 126/82 127/86 Pulse Oximetry 96 99 Oxygen Delivery Method Room Air Room Air MDM - Eye Problem MDM Narrative Medical decision making narrative: Patient here for sinus pain as well as left eye conjunctivitis. Sinus pain is not new. Was seen here in July of this year for the same complaint and was already on Augmentin by his primary care physician. He has appointment in 2 weeks with otolaryngology. Patient does wear contact lenses. He is not wearing them now. Yesterday his child was ?blowing raspberries ?was essentially spitting and he felt the fluid/saliva go into his left eye. He awoke this morning with crusting and redness to the left eye. He has not been wearing his contact lenses. He took them out last night. Otherwise no changes in vision. After history and exam, reviewed with patient no antibiotics indicated at this time for sinuses. However he does agree for antibiotics for his left eye. No slit-lamp Wood's lamp indicated this time. Mechanism of conjunctivitis identified. MDM CC: Conjunctivitis/sinus pain Complicating co-morbidities: Recurrent sinusitis. Wears contact lenses Data collected from: Patient Medical records reviewed: ER visit here July 27, 2022 for sinusitis. No antibiotics were prescribed from here. Differential considered: Includes but not limited to seasonal sinusitis sinus polyp, bacterial conjunctivitis Exam documented above, pertinent findings include: Injected conjunctiva sclera and crusting of the eyelashes Lab Test results independently reviewed as above. Pertinent findings: None indicated Treatments: None indicated here. Prescriptions provided Re-evaluations: Reviewed with patient exam findings. Agrees with eye drops for bacterial conjunctivitis. Understands no antibiotics indicated this time for sinus problem. This is recurrent. Likely not bacterial. Discussion: Appropriate for discharge home. Antibiotics indicated for sinusitis. This is recurrent. However antibiotics are indicated for conjunctivitis as mechanism of saliva in patient's eye yesterday. Return precautions reviewed with him. He will not wear his contact lenses until resolution. Prescription sent to his pharmacy. He desires discharge home. Diagnosis: Bacterial conjunctivitis, recurrent sinusitis Discharge Plan Departure Patient Disposition: Home Clinical Impression: Bacterial conjunctivitis Instructions: DI for Conjunctivitis Activity Restrictions/Additional Instructions: Do not wear contact lenses until re-evaluated by your family doctor and completion of your antibiotic eyedrops. Please see your ENT doctor as scheduled in 2 weeks regarding your sinus problems. Recurrent sinus/sinusitis is usually not bacterial infections. Return if worse if any questions or concerns. Prescriptions: New ciprofloxacin HCl 0.3 % drops See Rx Instructions .ROUTE .COMPLEX Qty: 10 0RF Rx Instructions: Two drops to the left eye every 2 hours while awake for [address] 2 drops 4 times daily for 5 days. No Action hydrocodone-acetaminophen 5-325 mg tablet 1 tab PO Q6H PRN (Reason: pain) Qty: 10 0RF ondansetron 4 mg tablet,disintegrating 4 mg PO Q8H PRN (Reason: nausea and vomiting) Qty: 10 0RF fluticasone propionate 50 mcg/actuation spray,suspension 1 spray intranasal DAILY PRN (Reason: nasal congestion) Qty: 16 0RF Rx Instructions: administer into each nostril cetirizine 10 mg tablet 10 mg PO DAILY PRN (Reason: allergy symptoms) Qty: 30 0RF Referrals: Sukhwinder Nassar [Primary Care Provider] - Stand Alone Forms: Patient Portal/API
== END 2022-10-13 11:20 | disposition home or self-care (01) ==
PROVIDERS: Emergency Provider Emergency Medicine; Family Provider Student in an Organized Health Care Education/Training Program; PCP Student in an Organized Health Care Education/Training Program
DX: H10.89 Other conjunctivitis (principal)
CPT/HCPCS: 99281

== ENCOUNTER 2023-05-18 12:41 | Day surgery (SDC) | payer OTHER, SELFPAY ==
[2023-05-16 08:16] VITALS: BMI 32.0
[2023-05-18] VITALS (9 sets, daily range): BP systolic 142–162; BP diastolic 94–106; PULSE 85–98; RESP 12–19; TEMP 36.2–36.8; O2SAT 93–97; BMI 32.1
[2023-05-18] MEDS: LACTATED RINGERS 1,000 ML 42 ML IV ×2 (13:14→14:50)
[2023-05-18] MEDS: OXYMETAZOLINE NASAL SPRAY 30 ML 2 SPRAYS NASAL ×2 (13:14→14:41)
--- NOTE | 2023-05-18 13:38 | PM.PREOP ---
Pre-operative Note Interval Note History & Physical reviewed/Exam performed by Physician: Yes Changes to H&P: No
--- NOTE | 2023-05-18 13:38 | PM.HP.1 ---
History of Present Illness History of Present Illness Date Patient Seen: 05/18/23 Time Patient Seen: 13:39 Chief complaint: SDC Narrative: 42-year-old male presents with his , last seen in clinic 02/23/2023 with nasal obstruction, plan septoplasty turbinate reduction and bernardo bullosa resection today. No interval health changes. 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 No recent cough cold or fever. PFSH Medical History Postnasal drip Respiratory obstruction Deviated septum Surgical History Hx of colonoscopy (2019) History of carpal tunnel release (~2012) Social History Smoking Status: Never smoker alcohol intake: current Meds Home Medications and Allergies Home Medications Medication Instructions Recorded Confirmed Type cetirizine 10 mg tablet 10 mg PO DAILY PRN allergy 07/27/22 05/18/23 Rx symptoms #30 tabs adalimumab 40 mg/0.8 mL 0.4 mg SUBCUT 05/18/23 History subcutaneous pen kit (Humira Pen) oxycodone 5 mg tablet 5 mg PO Q6H PRN Pain, Moderate 05/18/23 05/18/23 History Allergies Allergy/AdvReac Type Severity Reaction Status Date / Time No Known Drug Allergies Allergy Verified 05/18/23 12:49 Review of Systems Review of Systems Narrative: Negative except as listed in the HPI Exam Vital Signs (past 8 hours): - 05/18/23 13:09 Temperature 98.2 F Pulse Rate 87 Respiratory Rate 19 Blood Pressure 143/98 H Pulse Oximetry 96 Oxygen Delivery Method Room Air Oxygen Delivery Method Room Air Narrative Exam Narrative: Well-developed well-nourished, heart regular rate and rhythm without murmur, lungs clear to auscultation bilaterally Assessment & Plan Assessment & Plan narrative: Assessment: Nasal airway obstruction, septal deviation, inferior turbinate hypertrophy, respiratory obstruction, postnasal drip, bilateral bernardo bullosa Plan: Following discussion of the material risks benefits complications and alternatives, the patient elected to proceed.
--- NOTE | 2023-05-18 13:41 | P.OP_ITS ---
Operative Date/Time/Diagnoses Date of procedure: 05/18/23 Time of procedure: 15:51 Pre-op diagnosis: Nasal airway obstruction, septal deviation, bilateral bernardo bullosa, inferior turbinate hypertrophy Post-op diagnosis: same (oozing throughout case) Procedure & Clinicians Procedure: 1. Septoplasty 2. Bilateral bernardo bullosa resection 3. Bilateral inferior turbinate reduction via intramural cautery Same procedure as scheduled: Yes Indications: 42 Year old with the above diagnoses incompletely managed with medical therapy presents for the above procedure. Following discussion of the material risks benefits complications and alternatives, the patient elected to proceed. Surgeon: Chadd Ford Click Yes if Unassisted: Yes Anesthesia Type: General and Local Operative Notes Findings: oozing throughout the case from all surgical mucosal surfaces, increased difficulty as a result, 2+ right anterior septal deviation, dlwi-hqhdubo-luqu-right inferior turbinate hypertrophy. Mild bilateral bernardo bullosa, resected. No vertical strip of cartilage resected from the quadrilateral cartilage, to maintain tip support. Estimated Blood Loss (mL): 280 Procedure in detail: Following identification and confirmation of consent as well as preoperative Afrin nasal spray, the patient was brought to the operating room suite and placed in the supine position. General endotracheal anesthesia was administered. I infiltrated the septum widely bilaterally with 2% lidocaine 1 100,000 epinephrine followed by temporary packing with cotton with Afrin and 4% lidocaine. Following sterile prep and drape, the packing was removed and I performed a right siobhan-transfixion incision, elevated the right mucoperichondrial and mucoperiosteal flap. I disarticulated near the bony/cartilaginous junction and elevated the left mucoperiosteal flap. Deviated portions of the perpendicular plate of the ethmoid and vomer were resected. The residual quadrilateral cartilage was further straightened by trimming it inferiorly as well as reducing the maxillary crest. A 2 mm strip of cartilage paralleling the residual 1 cm dorsal and caudal strut was resected to further straighten the quadrilateral cartilage. The hemitransfixion incision was closed with interrupted 5 0 chromic followed by a running 4 0 plain gut mattress suture to reapproximate the septal flaps. The head of each inferior turbinate had been previously infiltrated with additional local anesthetic and a 25 gauge spinal needle was used to impale the length of the turbinate, with cautery on a setting of 15 activated on slow withdrawal over 2 passes each side. The turbinates were then outfractured. Under endoscopic guidance the posterior and anterior superior insertion of each middle turbinate was then infiltrated with additional local anesthetic via spinal needle, and small pledgets with epinephrine 1 1000 were placed in the middle meatus for a few minute. Beginning on the left side, the middle turbinate was slightly medialized and the lateral portion of the middle turbinate containing the bernardo bullosa was resected with the microdebrider and forceps, with cautery as necessary to the exposed edges. This procedure was repeated on the right side with identical findings. At case completion, Major air channel silastic splints were placed bilaterally, sutured anteriorly with a single 4 0 nylon. The procedure completed, sponge and needle counts were correct and the patient was extubated in the operating room and taken to recovery room in stable con dition without known complication. Complications: none Post-operative Condition: stable Disposition: same day surgery Plan for aftercare: Nasal saline every hour while awake, begin irrigations t.i.d. tomorrow if desired. Polysporin to the nostrils at all times, Tylenol alternating with Advil for pain control, oxycodone for breakthrough pain. Elevate head of bed, no nose blowing, no straining for 2 weeks. Ice directly under the nose on the upper lip has tolerated 24-48 hours at a minimum. Follow-up in 1 week for nasal splint removal.
[2023-05-18] MEDS: ACETAMINOPHEN IV 1,000 MG/100 ML VIAL 400 MG IV (14:05)
--- NOTE | 2023-05-18 14:24 | SUR.OPER ---
Supine on padded OR bed, head on pillow, arms padded and tucked at sides, legs uncrossed, safety belt at thigh, tape over blanket over lower legs .
[2023-05-18] MEDS: LIDOCAINE 4% SOLN 50 ML 20 ML TOP (14:42)
[2023-05-18] MEDS: LIDOCAINE 2% W/EPI INJ 20 ML INJ (14:44)
[2023-05-18] MEDS: BACITRACIN OINT 0.9 GM PCKT 1 APPLIC TOP (14:46)
[2023-05-18] MEDS: EPINEPHrine 1 MG/ML 3 MG TOP (14:46)
[2023-05-18] MEDS: OXYCODONE IR 5 MG TABLET PO (16:37)
[2023-05-18] MEDS: ONDANSETRON 4 MG/2 ML INJ IV (16:37)
== END 2023-05-18 17:15 | disposition home or self-care (01) ==
PROVIDERS: Family Provider Student in an Organized Health Care Education/Training Program; Referring Provider Otolaryngology; Visit Provider Otolaryngology
PROC: 09QM4ZZ Repair Nasal Septum, Percutaneous Endoscopic Approach (ICD-10-PCS; CPT 30520; principal; 2023-05-18 14:00)
DX: J34.89 Other specified disorders of nose and nasal sinuses (principal); J34.2 Deviated nasal septum; J34.3 Hypertrophy of nasal turbinates
CPT/HCPCS: 30520; 31240; 30802; J0131; J0171; J1170; J2250; J2405; J2704; J3010

== ENCOUNTER 2023-06-15 21:41 | Emergency (ER) | payer OTHER, SELFPAY ==
[2023-06-15 21:45] VITALS: BP 167/88; PULSE 83; RESP 18; TEMP 37.1; O2SAT 98; BMI 31.4
--- NOTE | 2023-06-15 21:59 | PC.NURSE ---
pH 7 in both eyes
[2023-06-15] MEDS: FLUORESCEIN 1 MG STRIP EYE-BOTH (22:22)
[2023-06-15] MEDS: PROPARACAINE 0.5% OPHTH SOL 1 DROPS EYE-BOTH (22:23)
--- NOTE | 2023-06-15 22:29 | PC.NURSE ---
During visual acuity test, pt unable to read anything on the chart with his right eye. Pt states that's how my left eye was a little bit ago.
--- NOTE | 2023-06-16 00:37 | ED.GENADULT ---
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 States that he was seen by the assisted living housekeeper yesterday had a dilated eye exam everything seemed to be going well. This morning he woke up felt fine put his contacts in and over the course of the day had increasing irritation. He noticed that he was having decreasing vision with halos around lights. By the time he is seen in the emergency department he has since taken his contacts out but has ?fuzziness? over visual kimball bilaterally with slight decrease in overall vision. He describes no headaches, fever, coughs. He is used Systane eyedrops and saline to try to rinse his eyes and symptoms are not improving. Related Data Home Medications Medication Instructions Recorded Confirmed adalimumab 40 mg/0.8 mL 0.4 mg SUBCUT 05/18/23 subcutaneous pen kit (Humira Pen) oxycodone 5 mg tablet 5 mg PO Q6H PRN Pain, Moderate 05/18/23 05/18/23 Previous Rx's Medication Instructions Recorded cetirizine 10 mg tablet 10 mg PO DAILY PRN allergy 07/27/22 symptoms #30 tabs Allergies Allergy/AdvReac Type Severity Reaction Status Date / Time No Known Drug Allergies Allergy Verified 05/18/23 12:49 Review of Systems Review of Systems Narrative: Pertinent positive and negative findings as per HPI Patient History Medical History Postnasal drip Respiratory obstruction Deviated septum Surgical History Hx of colonoscopy (2019) History of carpal tunnel release (~2012) Social History Smoking Status: Never smoker alcohol intake: current Smoking Status: Never smoker alcohol intake frequency: holidays/special occasions only Substance Use Type: does not use Exam Initial Vital Signs Initial Vital Signs: Vital Signs Temperature 98.7 F 06/15/23 21:45 Pulse Rate 83 06/15/23 21:45 Respiratory Rate 18 06/15/23 21:45 Blood Pressure 167/88 H 06/15/23 21:45 Pulse Oximetry 98 06/15/23 21:45 Oxygen Delivery Method Room Air 06/15/23 21:45 General: Alert appropriate in no acute distress HEENT: Both eyes have injected sclera bilaterally and are tearing. There is no purulent exudate. No swelling of eyelids. Pupils are equal and reactive and extraocular eye movement is intact. Gross exam with normal light shows the injected sclera. Eyes are anesthetized with prilocaine and fluorescein stain is used. He has corneal irritation with small punctate lesions and increased fluorescein uptake in almost the exact shape with his contact lenses bilaterally. There are no abrasions or other ulcerations. Respiratory: Able to speak in full sentences, no obvious respiratory distress Skin: No obvious rashes, warm and dry Neurologic: Grossly intact no obvious asymmetries or abnormalities Psych: appropriate insight and affect, cooperative Course Orders Ordered: Discontinued Medications Fluorescein Sodium (Fluorescein 1 Mg Strip) 1 mg EYE-BOTH NOW ONE Stop: 06/15/23 22:17 Last Admin: 06/15/23 22:22 Dose: 1 mg Documented By: SUNIL Proparacaine HCl (Proparacaine 0.5% Ophth Luna) 1 drops EYE-BOTH NOW ONE Stop: 06/15/23 22:17 Last Admin: 06/15/23 22:23 Dose: 1 drops Documented By: SUNIL Vital Signs Vital signs: Vital Signs - 8 hr 06/15/23 21:45 Temperature 98.7 F Pulse Rate 83 Respiratory Rate 18 Blood Pressure 167/88 H Pulse Oximetry 98 Oxygen Delivery Method Room Air Medical Decision Making Lab Data Labs: Point of Care Testing pH,Tear Film,POC Measurement pH 7 Point of care testing: Point of Care Testing pH,Tear Film,POC Measurement pH 7 [facility] Narrative Medical decision making narrative: CC: Bilateral eye pain Complicating co-morbidities: Does use steroid cream for his psoriasis. Wondering if he may have inadvertently gotten some of the steroid cream in his eye. 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 No purulent discharge to suggest bacterial conjunctivitis Exam documented above, pertinent findings include: Bilateral punctate irritation with fluorescein uptake same pattern as his contact lens would be worth it over his cornea. Discussion: Patient with likely contact lens keratitis. It is bilateral. At this time vision is improving slightly. He has an appointment with his assisted living housekeeper 1st thing in the morning. As I do not have access to eye drops this point will leave further evaluation and discussion of steroid eyedrops to the assisted living housekeeper. Patient agrees and understands. At this point he is safe for discharge home. He does not have an immediate vision threatening issue that would require more emergent evaluation, transfer or hospitalization. 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 Please make sure that you keep your contacts out, use your glasses and make sure that you dispose of the current pair. Please do schedule an appointment with your assisted living housekeeper 1st thing in the morning. There may be some benefit to steroid eyedrops in this situation. I do not have samples to give you an you likely will be able to get into see the assisted living housekeeper prior than being able to fill a prescription. If you find that you are having more pain, worsening visual acuity or different findings that would be very appropriate to return to the ER Prescriptions: No Action cetirizine 10 mg tablet 10 mg PO DAILY PRN (Reason: allergy symptoms) Qty: 30 0RF Humira Pen 40 mg/0.8 mL pen injector kit 0.4 mg SUBCUT Patient Comments: [NO ORIGINAL SIG] oxycodone 5 mg Tablet 5 mg PO Q6H PRN (Reason: Pain, Moderate) Patient Comments: has not started Referrals: ProviderChristina [Primary Care Provider] - Stand Alone Forms: Patient Portal/API
[2023-06-16 01:01] VITALS: BP 143/89; PULSE 72; RESP 16; O2SAT 95
== END 2023-06-16 01:02 | disposition home or self-care (01) ==
PROVIDERS: Emergency Provider Emergency Medicine; Family Provider Student in an Organized Health Care Education/Training Program
DX: H18.9 Unspecified disorder of cornea (principal)
CPT/HCPCS: 99282

== ENCOUNTER → 2023-10-22 13:48 | Outpatient (CLI) | payer OTHER, SELFPAY ==
--- NOTE | 2023-10-22 13:50 | DI.MRI.S_ITS ---
PROCEDURE: MR KNEE RT WO CON INDICATIONS: knee pain TECHNIQUE: Noncontrast sagittal PD fast spin echo and T2 fast spin echo with fat saturation, sagittal 3-D FLASH with fat saturation; coronal T1 spin echo and PD fast spin echo with fat saturation, and axial PD fast spin echo with fat saturation through the knee. COMPARISON: [facility], MR, MR KNEE RT WO CON, 04/02/2019, 17:56. FINDINGS: Image quality: Diagnostic Menisci: Medial: No discrete tear Lateral: No discrete tear. Mild internal substance signal abnormality, likely degenerative. Cruciate ligaments: Intact Medial structures: MCL: Intact Pes anserine tendons: Intact Semimembranosus: Intact Lateral structures: LCL: Mild signal abnormality of proximal aside may represent sprain or prior injury Biceps femoris: Intact IT band: Intact Popliteus tendon: Intact Anterior structures: Extensor mechanism: Mild patellar tendon proximal aspect and distal quadriceps signal abnormality Fat pads: Mild edema in the superolateral corner of Hoffa's fat pad. There is also mild prepatellar edema Medial retinaculum: Intact. Trochlea: Normal TT TG distance Bone and joint: Bones: No acute fracture Cartilage: Trochlear cartilage defect measures 1.2 centimeters, with decreased surrounding edema. Mild heterogeneity of the cartilage in the other compartments, without full-thickness defect or subchondral edema Joint space: Mild effusion Leger's cyst: None Soft tissues: No significant vascular or other soft tissue pathology. IMPRESSION: Intact cruciate and collateral ligaments. Mild signal abnormality at the proximal LCL, probably sprain or sequelae of prior injury. No discrete meniscal tear. Mild degenerative signal in the lateral meniscus. Possible mild tendinopathy of the extensor mechanism. Small joint effusion. Nonspecific edema in the superolateral corner of Hoffa's fat pad can sometimes be seen with impingement. Mild prepatellar edema. Decreased conspicuity of the edema surrounding the 1.2 centimeter trochlear cartilage defect (8/13). Mild cartilage heterogeneity is elsewhere. Dictated by: Kirt Terry M.D. on 10/23/2023 at 13:54 Approved by: Kirt Terry M.D. on 10/23/2023 at 14:01
== END ==
LOC: MRI 13:49
PROVIDERS: Family Provider Student in an Organized Health Care Education/Training Program
DX: M25.461 Effusion, right knee (principal); M25.561 Pain in right knee; R60.0 Localized edema
CPT/HCPCS: 73721

== ENCOUNTER 2024-04-08 12:06 | Day surgery (SDC) | payer OTHER, SELFPAY ==
--- NOTE | 2024-04-08 | PATH_ITS ---
[facility] Accession Number: [id number] No. of containers..01 Tissue . 01 Material submitted: . colon - ASCENDING POLYP . 01 Diagnosis: ASCENDING COLON, POLYP: Sessile serrated adenoma. [facility] 04/09/2024 1050 Local . 01 Electronically signed: . Gerri White MD, Pathologist NPI- [id number] . 01 Gross description: . ASCENDING POLYP: Received in formalin is 1 fragment(s) of marrero, soft tissue measuring 0.9 x 0.7 x 0.3 cm submitted entirely in 1 cassette(s) /[facility] 04/09/2024 0103 Local . 01 Pathologist provided ICD-10: D12.2 . 01 CPT . 643054 Specimen Comment: A courtesy copy of this report has been sent to [phone] Performed at: [address] [facility] [address], [place], [place] [id number] MD Miki Wang MD Phone: [phone]
[2024-04-08 12:56] VITALS: BP 137/91; PULSE 77; RESP 16; TEMP 36.7; O2SAT 96
--- NOTE | 2024-04-08 13:13 | PM.HP.1 ---
History of Present Illness History of Present Illness Date Patient Seen: 04/08/24 Time Patient Seen: 13:13 [place] [facility] [place]arrative: 43-year-old male with a 6-8 month history of intermittent red blood per rectum. He had similar symptoms several years ago when he was down in [place]. Colonoscopy was done at that time but he does not recall any culprit pathology. The patient reports it his stools are slightly on the loose side of the spectrum. Denies any diarrhea or constipation. He has seen some mucus per rectum on occasion. He has a single aunt with colon cancer. No additional 2nd or first-degree relatives with colon cancer. He is unaware of any prior history of colon polyps personally. He presents for evaluation of the bleeding symptoms. He takes Humira for a history of psoriatic arthritis. [facility] Medical History Postnasal drip Respiratory obstruction Deviated septum Surgical History Hx of colonoscopy (2019) History of carpal tunnel release (~2012) Social History Smoking Status: Never smoker alcohol intake: current Meds Home Medications and Allergies Home Medications Medication Instructions Recorded Confirmed Type adalimumab 40 mg/0.8 mL 0.4 mg SUBCUT 05/18/23 History subcutaneous pen kit (Humira Pen) Allergies Allergy/AdvReac Type Severity Reaction Status Date / Time No Known Drug Allergies Allergy Verified 04/08/24 12:55 Review of Systems Review of Systems ROS: Yes All systems reviewed with the patient and are negative except as otherwise documented Exam Vital Signs (past 8 hours): - 04/08/24 12:56 Temperature 98.1 F Pulse Rate 77 Respiratory Rate 16 Blood Pressure 137/91 H Pulse Oximetry 96 Oxygen Delivery Method Room Air Oxygen Delivery Method Room Air Const General: cooperative HENMT Head: normal to inspection Eyes General: appearance normal, both eyes and all related structures Neck Neck: normal visual inspection Chest Chest: normal inspection of the chest Resp Effort & Inspection: normal respiratory effort Cardio Rate: regular rate GI Inspection: normal to inspection Skin General: no rashes or lesions noted Neuro General: patient alert and patient awake Extrem General: normal to inspection and no pedal edema Psych Appearance: grossly normal Assessment & Plan Assessment & Plan narrative: 43-year-old male with intermittent rectal bleeding. Diagnostic colonoscopy is pursued today. Time-Based Coding :: [TOTAL MINUTES] spent with patient and on the chart (including review of chart, obtaining history, exam, reviewing outside data, placing orders, documenting exam and treatment plan, and counseling patient) on [DATE].
--- NOTE | 2024-04-08 13:17 | PM.PREOP ---
Pre-operative Note Interval Note History & Physical reviewed/Exam performed by Physician: Yes Changes to H&P: No ASA Class (for procedural sedation): II
--- NOTE | 2024-04-08 14:19 | P.OP.COLON_ITS ---
Operative Date/Time/Diagnoses Date of procedure: 04/08/24 Time of procedure: 14:19 Pre-op diagnosis: Sporadic rectal bleeding Post-op diagnosis: same Procedure & Clinicians Study performed: Colonoscopy with hot snare polypectomy and APC ablation Same procedure as scheduled: Yes Indications: Sporadic rectal bleeding Surgeon: Harish Malloy Procedure Notes SCOAP/Timeout: Done Procedure in detail: After the risks and benefits were explained, written and verbal informed consent was obtained. The patient was brought into the procedure room and placed into the left lateral decubitus position. Please see anesthesia note for sedation details. Digital rectal examination was accomplished. The scope was introduced into the patient and advanced under direct visualization to the cecum as identified by the appendiceal orifice and ileocecal valve. The scope was slowly withdrawn to carefully examine the mucosa for any defects or lesions. Comprehensive imaging was accomplished throughout the rectum including the dent ate line. The colon was decompressed, the scope was then removed from the patient who tolerated the procedure well. Adult colonoscope Bowel prep adequate Scope withdrawal time: Approximately 15 minutes Sedation minutes: 26 Complications: none Impression: The patient had scattered diverticula in the sigmoid. No evidence of proctitis. No evidence of colitis throughout. The terminal ileum was interrogated and appeared visually normal. In the ascending colon there was an approximately 7 mm sessile polyp removed with hot snare. In the sigmoid colon there were 2 nonbleeding foci of possible angiodysplasia. Both of these were ablated with a straight fire APC probe at 0.8 liters/minute and 30 w. No additional potential bleeding pathology was identified throughout. The patient did have evidence of grade 1 internal hemorrhoids with no stigmata of recent bleeding. Endoscopic diagnosis 1. Colon polyp 2. Diverticulosis 3. Grade 1 internal hemorrhoids 4. 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 Await histology. 2. The timing of repeat colonoscopy for surveillance will be contingent on pathology results. Disposition: PACU
[2024-04-08 14:24] VITALS: BP 133/86; PULSE 91; RESP 16; TEMP 36.2; O2SAT 94
[2024-04-08 14:28] VITALS: BP 126/82; PULSE 91; RESP 16; O2SAT 98
[2024-04-08 14:34] VITALS: BP 139/97; PULSE 77; RESP 16; TEMP 36.2; O2SAT 98
== END 2024-04-08 14:45 | disposition home or self-care (01) ==
PROVIDERS: Family Provider Student in an Organized Health Care Education/Training Program; Referring Provider Internal Medicine Gastroenterology; Visit Provider Internal Medicine Gastroenterology
PROC: 0DJD8ZZ Inspection of Lower Intestinal Tract, Via Natural or Artificial Opening Endoscopic (ICD-10-PCS; CPT 45378; principal; 2024-04-08 13:00)
DX: K62.5 Hemorrhage of anus and rectum (principal); K57.30 Diverticulosis of large intestine without perforation or abscess without bleeding; K55.20 Angiodysplasia of colon without hemorrhage; K64.0 First degree hemorrhoids; D12.2 Benign neoplasm of ascending colon
CPT/HCPCS: 45388; 45385; J2405; J2704

== ENCOUNTER → 2024-10-08 09:04 | Outpatient (CLI) | payer OTHER, SELFPAY ==
--- NOTE | 2024-10-08 12:24 | ST.SWALLOW ---
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 Messer. 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 Pt reported difficulty swallowing like is isn't all swallowed...need to swallow hard. Pt described a sensation of something stuck in the area of his sternal notch. He denied choking when with solids/ liquids/pills, but did note PND was constant and difficult to swallow. Pt reported no PHM of neurological diagnoses, head/neck injury or surgery and no GERD diagnosis. Subjective Observations Pt was seated in the fluoroscopy chair with directions and procedures described for him. He indicated he understood and agreed to proceed. Patient Positioning Position View Lat-A/P Imaging Lateral View Textures Administered Trials Presented Thin Liquid via Spoon (IDDSI 0 ),Thin Liquid via Cup (IDDSI 0 ),Extremely Thick Liquid via Spoon (IDDSI 4),Regular (IDDSI 7) The IDDSI Framework Protocol: IDDSI.1 Oral Impairment Source: The Modified Barium Swallow Impairment Profile (MBSImP??) Lip Closure No labial escape Tongue Control During Bolus Hold Cohesive bolus between tongue to palatal seal Bolus Preparation/Mastication Timely & efficient chewing & mashing Bolus Transport/Lingual Motion Brisk tongue motion Oral Residue Complete oral clearance Initiation of Pharyngeal Swallow Bolus head at posterior angle of ramus (first hyoid excursion) Additional Oral Impairment Observations Oral phase of swallow WNL *OME and DKS were observed to be WNL. *Dentition natural and in good hygiene *Mastication observed with rotary chew pattern. *Good bolus formation, control and AP transition. *Velopharyngeal closure was WNL. Pharyngeal Impairment Source: The Modified Barium Swallow Impairment Profile (MBSImP??) Soft Palate Elevation No bolus between soft palate & pharyngeal wall Laryngeal Elevation Comp.sup.move.thyroid cart.w/ comp.approx.arytenoids to epiglot petiole Anterior Hyoid Excursion Complete anterior movement Epiglottic Movement Complete inversion Laryngeal Vestibular Closure Complete; no air/contrast in laryngeal vestibule Pharyngeal Stripping Wave Present - complete Pharyngoesophageal Segment Opening Complete distention & complete duration; no obstruction of flow Tongue Base Retraction No contrast between tongue base & posterior pharyngeal wall Pharyngeal Residue Complete pharyngeal clearance Additional Pharyngeal Impairment Pharyngeal phase of swallow Observations WNL *Hyoid/laryngeal elevation and epiglottic inversion were judged to be WNL. *Tongue base retraction, pharyngeal stripping wave and cricopharyngeal opening WNL *No Post-swallow residue. *No laryngeal penetration or aspiration was observed. A/P View Textures Administered Trials Presented Thin Liquid via Cup (IDDSI 0) The IDDSI Framework Protocol: IDDSI.1 A/P View Observations Pharyngeal Contraction Complete Esophageal Clearance Upright Position Complete clearance; esophageal coating Vocal Fold Function Good Esophageal Function WFL Clinical Impressions Dysphagia Type WNL Findings Pt demonstrated no s/sx dysphagia. Swallow function WNL Patient Appropriate for Therapy No Recommendations
== END ==
LOC: RAD 09:04
PROVIDERS: Family Provider Student in an Organized Health Care Education/Training Program
DX: F45.8 Other somatoform disorders (principal)
CPT/HCPCS: 74230; 92611

== ENCOUNTER 2024-10-26 07:58 | Emergency (ER) | payer OTHER, SELFPAY ==
--- NOTE | 2024-10-26 08:25 | ED_ITS ---
HPI - General Adult General Chief complaint: Extremity Problem,Nontraumatic Stated complaint: runaway arthritis lt shoulde, liquid behind lt ear Time Seen by Provider: 10/26/24 08:19 History of Present Illness HPI narrative: 44-year-old male with history of psoriatic arthritis had been on Humira but a month ago change to Cosentyx injections, having diffuse joint pains likely breakthrough. No fevers or chills. Diffuse joints affected upper extremities and lower extremities as well as shoulders. No specific injuries or new activities. In the past it has been steroid responsive, he has usually responded to prednisone tapering schedule, we would like to start this. He is taking naproxen [id number]-[id number] NSAIDs as well. Denies stomach problems at this time. Also denies any fevers or chills shortness of breath. He does have left ear pain without drainage. No recent cough. No local your trauma. Related Data Home Medications Medication Instructions Recorded Confirmed adalimumab 40 mg/0.8 mL 0.4 mg SUBCUT 05/18/23 subcutaneous pen kit (Humira Pen) Previous Rx's Medication Instructions Recorded prednisone 10 mg tablet 10 mg PO DIRECTED #30 tabs 10/26/24 Allergies Allergy/AdvReac Type Severity Reaction Status Date / Time No Known Drug Allergies Allergy Verified 04/08/24 12:55 Patient History Medical History Postnasal drip Respiratory obstruction Deviated septum Surgical History Hx of colonoscopy (2019) History of carpal tunnel release (~2012) Social History alcohol intake: current alcohol intake frequency: a few times a week Exam Narrative Exam Narrative: GENERAL: Well-developed patient, in mild distress. HEAD: Atraumatic. Normocephalic. EYES: Pupils equal round and reactive. Extraocular motions intact. No scleral icterus. No injection or drainage. ENT: Nose without bleeding, purulent drainage. Throat without erythema, tonsillar hypertrophy or exudate. Airway patent. NECK: Trachea midline. Non tender CARDIOVASCULAR: Regular rate and rhythm without murmurs, gallops, or rubs. RESPIRATORY: Clear to auscultation. Breath sounds equal bilaterally. No wheezes, rales, or rhonchi. GASTROINTESTINAL: Abdomen soft, non-tender, nondistended. EXTREMITIES: No gross deformities hands/fingers, grossly normal range motion BUE including wrists hands fingers. BACK: Nontender without deformity or crepitance. No flank tenderness. NEURO: AOx3. Motor functions grossly nonfocal SKIN: No rash or erythema of visible areas Initial Vital Signs Initial Vital Signs: Vital Signs Temperature 98.5 F 10/26/24 08:26 Pulse Rate 70 10/26/24 08:26 Respiratory Rate 16 10/26/24 08:26 Blood Pressure 143/92 H 10/26/24 08:26 Pulse Oximetry 98 10/26/24 08:26 Oxygen Delivery Method Room Air 10/26/24 08:26 Course Orders Ordered: Discontinued Medications Prednisone (Prednisone 20 Mg Tablet) 40 mg PO NOW ONE Stop: 10/26/24 08:46 Last Admin: 10/26/24 08:53 Dose: 40 mg Documented By: CTS Vital Signs Vital signs: Vital Signs - 8 hr 10/26/24 08:26 Temperature 98.5 F Pulse Rate 70 Respiratory Rate 16 Blood Pressure 143/92 H Pulse Oximetry 98 Oxygen Delivery Method Room Air Medical Decision Making MDM Narrative Medical decision making narrative: 44-year-old male with psoriatic arthritis with recent likely flare in transition from Humira to Cosentyx injections, previously responsive to steroids, requesting steroid Dosepak prednisone tapering schedule that has worked well for him in the past, no fever on triage, sirs screen negative. Left ear pain nontraumatic, unremarkable ear exam without dullness or redness or bubbles, no EAC changes, unclear etiology. We will give 1st dose prednisone 40 mg for now, prescription sent to his pharmacy for tapering schedule. Advised to follow up with his api developer as scheduled, perhaps by phone at least on 10/29/2024 after this holiday weekend. Return precautions discussed. Also advised to consider [id number] omeprazole/Pepcid antacid while on prednisone taper and recent restart of naproxen, to help protect stomach. Discharge Plan Departure Patient Disposition: Home Clinical Impression: Psoriatic arthritis Activity Restrictions/Additional Instructions: Flare of psoriatic arthritis and transition from Humira injections to Cosentyx injections, previous responsiveness to steroid tapering schedule. We will give prednisone 10 mg tablet prescription, with instructions to take 4 tablets daily for 3 days, 3 tablets daily for 3 days, 2 tablets daily for 3 days, 1 tablet daily for 3 days. Continue taking the tbyk-yve-cntlccw naproxen. The steroid in the NSAID in combination might be hard on your stomach, consider tezi-qne-fbqckgi omeprazole or Pepcid to help protect your stomach while taking the steroids in the naproxen. Consider contacting your api developer after this holiday weekend on 10/29/2024. Return earlier to this/nearest emergency department for any change worsening symptoms or any concerns prior. Prescriptions: New prednisone 10 mg tablet 10 mg PO DIRECTED Qty: 30 0RF Rx Instructions: Four tablets daily for 3 days, 3 tablets daily for 3 days, 2 tablets daily for 3 days, 1 tablet daily for 3 days. No Action Humira Pen 40 mg/0.8 mL pen injector kit 0.4 mg SUBCUT Patient Comments: [NO ORIGINAL SIG] Referrals: ProviderChristina [Primary Care Provider] - Stand Alone Forms: Patient Portal/API/Survey
[2024-10-26 08:26] VITALS: BP 143/92; PULSE 70; RESP 16; TEMP 36.9; O2SAT 98; BMI 31.4
[2024-10-26] MEDS: predniSONE 20 MG TABLET 40 MG PO (08:53)
== END 2024-10-26 08:55 | disposition home or self-care (01) ==
PROVIDERS: Emergency Provider Emergency Medicine; Family Provider Student in an Organized Health Care Education/Training Program
DX: L40.50 Arthropathic psoriasis, unspecified (principal)
CPT/HCPCS: 99283

== ENCOUNTER 2025-02-23 12:03 | Emergency (ER) | payer OTHER, SELFPAY ==
[2025-02-23] VITALS (8 sets, daily range): BP systolic 136–155; BP diastolic 92–93; PULSE 71–88; RESP 16; TEMP 36.5; O2SAT 95–98; BMI 30.7
[2025-02-23 14:02] LABS: Alanine Aminotransferase 31 IU/L (<50); Albumin 4.5 g/dL (3.5-5.0); Albumin Globulin Ratio 1.3 (1.0-2.8); Alkaline Phosphatase 93 U/L (38-126); Blood Urea Nitrogen 15 mg/dL (9-20); Calcium 9.4 mg/dL (8.4-10.2); Carbon Dioxide 23 mmol/L (22-32); Chloride 105 mmol/L (98-107); Estimated Glomerular Filt Rate > 60 mL/min (>60); Globulin 3.6 g/dL (1.7-4.1); Glucose 96 mg/dL (70-99); HEMOLYSIS < 15 (0-50); Lipase 39 U/L (23-300); Potassium 3.9 mmol/L (3.4-5.1); Sodium 140 mmol/L (137-145); Total Protein 8.1 g/dL (6.3-8.2)
[2025-02-23 14:03] LABS: Add Manual Diff / Slide Review NO; Hematocrit 44.0 % (41-53); Hemoglobin 15.5 g/dL (13.5-17.5); Lymphocytes Absolute Auto 2500 /uL (1100-4500); Mean Corpuscular HGB Conc 35.1 % (30-36); Mean Corpuscular Hemoglobin 30.3 PG (26-34); Mean Corpuscular Volume 86.3 fL (80-100); Platelet Count 269 X10^3/uL (150-400)
--- NOTE | 2025-02-23 15:58 | ED.ABDPAIN ---
HPI - Abdominal Pain General Chief Complaint: Abdominal Pain Stated Complaint: Lt abdomen pain and cramping Time Seen by Provider: 02/23/25 15:57 Source: patient, RN notes reviewed and old records reviewed Mode of arrival: Ambulatory Limitations: no limitations History of Present Illness HPI narrative: 44-year-old male with history of psoriatic arthritis on Enbrel with complaint of left lower quadrant pain. Patient states pain has been present for about 3 days. He has occasionally had pain which she has thought was a gas bubble but usually goes away. He denies fevers or chills. No chest pain or shortness of breath. No nausea or vomiting. No diarrhea. He notes some chronic constipation but stooling regularly. No black or bloody stools reported. No dysuria urgency frequency. No rash or skin changes. No flank pain. Patient notes he does injections of Enbrel but states her in his thigh he does not do any injections in his abdomen. States no other daily medications. Denies any prior surgeries. No known drug allergies. Former smoker, occasional alcohol, no recreational drugs. Related Data Home Medications ?Medication ?Instructions ?Recorded ?Confirmed adalimumab 40 mg/0.8 mL 0.4 mg SUBCUT 05/18/23 subcutaneous pen kit (Humira Pen) Previous Rx's ?Medication ?Instructions ?Recorded prednisone 10 mg tablet 10 mg PO DIRECTED #30 tabs 10/26/24 amoxicillin 875 mg-potassium 1 tab PO BID #20 tabs 02/23/25 clavulanate 125 mg tablet Allergies Allergy/AdvReac Type Severity Reaction Status Date / Time No Known Drug Allergies Allergy Verified 02/23/25 12:09 Review of Systems Review of Systems ROS Unobtainable: All systems reviewed & are unremarkable except as noted in HPI and below Patient History Medical History Postnasal drip Respiratory obstruction Deviated septum Surgical History Hx of colonoscopy (2019) History of carpal tunnel release (~2012) Social History Smoking Status: Former smoker alcohol intake: current Smoking Status: Former smoker alcohol intake frequency: a few times a week Exam Narrative Exam Narrative: GENERAL: Alert and oriented x three, male in mild distress HEENT: Head normocephalic, atraumatic, EOMI, pupils reactive, face symmetric, moist mucous membranes NECK: Supple, full range of motion CARDIOVASCULAR: Regular rate and rhythm without murmurs, rubs or gallops. RESPIRATORY: Breath sounds equal bilaterally, no wheezes rales or rhonchi. ABDOMEN: Soft, positive for left lower quadrant tenderness. Normoactive bowel sounds all 4 quadrants. No guarding, positive for rebound, no rigidity, no mass. Rash, no skin changes no ecchymosis. : No CVA tenderness EXTREMITIES: Normal range of motion, no clubbing or edema. Neurovascularly intact NEUROLOGICAL: Cranial nerves II through XII grossly intact. Moving all extremities SKIN: Warm, dry, no petechiae, no rashes or lesions. Initial Vital Signs Initial Vital Signs: Vital Signs Temperature 97.7 F 02/23/25 12:08 Pulse Rate 88 02/23/25 12:08 Respiratory Rate 16 02/23/25 12:08 Blood Pressure 155/92 H 02/23/25 12:08 Pulse Oximetry 98 02/23/25 12:08 Oxygen Delivery Method Room Air 02/23/25 12:08 Course Orders Ordered: ED Orders 02/23/25 13:32 Complete Blood Count AUTO DIFF Stat Comprehensive Metabolic Panel Stat Lipase Stat 02/23/25 16:42 CT abdomen pelvis w con Stat Discontinued Medications Amoxicillin/Clavulanate Potassium (Amoxicillin/Clav 875/125 Mg) 1 tab PO NOW ONE Stop: 02/23/25 18:18 Last Admin: 02/23/25 18:20 Dose: 1 tab Documented By: SHANIKA Ondansetron HCl (Ondansetron 4 Mg/2 Ml Inj) 4 mg IV NOW PRN PRN Reason: Nausea And Vomiting Ondansetron HCl (Ondansetron 4 Mg Odt) 4 mg PO NOW PRN PRN Reason: Nausea And Vomiting Vital Signs Vital signs: Vital Signs - 8 hr 02/23/25 12:08 02/23/25 16:09 02/23/25 16:12 Temperature 97.7 F Pulse Rate 88 73 71 Respiratory Rate 16 Blood Pressure 155/92 H 136/93 H Pulse Oximetry 98 97 97 Oxygen Delivery Method Room Air Room Air 02/23/25 16:30 02/23/25 17:00 02/23/25 17:30 Temperature Pulse Rate 75 75 75 Respiratory Rate Blood Pressure Pulse Oximetry 96 98 96 Oxygen Delivery Method 02/23/25 18:00 02/23/25 18:22 02/23/25 18:22 Temperature Pulse Rate 78 75 Respiratory Rate Blood Pressure 136/92 H Pulse Oximetry 97 95 Oxygen Delivery Method Room Air MDM - Abdominal Pain Lab Data 02/23/25 13:32 02/23/25 13:32 Labs: Lab Results 02/23/25 Range/Units 13:32 WBC 11.3 H (4.5-11.0) X10^3/uL RBC 5.10 (4.5-5.9) X10^6/uL Hgb 15.5 (13.5-17.5) g/dL Hct 44.0 (41-53) % MCV 86.3 (80-100) fL MCH 30.3 (26-34) PG MCHC 35.1 (30-36) % RDW 13.9 (11.6-14.8) % Plt Count 269 (150-400) X10^3/uL Neut % (Auto) 70.2 (50-75) % Lymph % (Auto) 22.2 L (25-40) % Spink % (Auto) 5.9 (3-14) % Eos % (Auto) 0.9 L (2-4) % Baso % (Auto) 0.8 (0-2) % Neut # (Auto) 7900 H (6332-7091) /uL Lymph # (Auto) 2500 (5475-3381) /uL Spink # (Auto) 700 (0-900) /uL Eos # (Auto) 100 (0-450) /uL Baso # (Auto) 100 (0-100) /uL Sodium 140 (137-145) mmol/L Potassium 3.9 (3.4-5.1) mmol/L Chloride 105 (98-107) mmol/L Carbon Dioxide 23 (22-32) mmol/L BUN 15 (9-20) mg/dL Creatinine 0.96 (0.66-1.25) mg/dL Estimated GFR > 60 (>60) mL/min BUN/Creatinine Ratio 15.6 (6-22) Glucose 96 (70-99) mg/dL Calcium 9.4 (8.4-10.2) mg/dL Total Bilirubin 0.8 (0.2-1.3) mg/dL AST 25 (17-59) IU/L ALT 31 (<50) IU/L Alkaline Phosphatase 93 (38-126) U/L Total Protein 8.1 (6.3-8.2) g/dL Albumin 4.5 (3.5-5.0) g/dL Globulin 3.6 (1.7-4.1) g/dL Albumin/Globulin Ratio 1.3 (1.0-2.8) Lipase 39 (23-300) U/L Point of care testing: Urine Dip Bedside Urine Glucose Negative Bedside Urine Bilirubin - Negative Bedside Urine Ketone - Negative Urine Specific [place] 1.025 Bedside Urine Occult Blood - Negative Bedside Urine pH 5.5 Bedside Urine Protein - Negative Bedside Urine Urobilinogen - Negative Bedside Urine Nitrite - Negative Bedside Urine Leukocytes - Negative Esterase MDM Narrative Medical decision making narrative: Labs show white count 11.3 hemoglobin is 15 platelets are 269, chemistries are appropriate BUN and creatinine normal, bilirubin, AST ALT and lipase are normal. Point of care urine is negative. CT abdomen pelvis shows left colon acute diverticulitis. No organized abscess, free air or bowel obstruction. 44-year-old male who has tenderness in left lower quadrant, does has a history of psoriatic arthritis with a history felt appropriate to obtain CT imaging, labs, urine and vitals show any clear source symptoms. Workup shows diverticulitis without any signs of abscess or free air. Started patient on oral antibiotic. Discussed return precautions all questions answered. Discharge Plan Departure Patient Disposition: Home Clinical Impression: Diverticulitis Instructions: DI for Diverticulitis Activity Restrictions/Additional Instructions: Follow up for recheck if your symptoms are did not completely resolve. Your CT today shows diverticulitis but without any signs of abscess or fluid collection or free air. Take oral antibiotics until completed. Prescription sent to [facility] in [place]. Please return for fevers, new or worsening abdominal back or flank pain, any persistent vomiting, black or bloody stools, inability difficulty urinating or other new or concerning changes. Prescriptions: New amoxicillin-pot clavulanate 875-125 mg tablet 1 tab PO BID Qty: 20 0RF No Action prednisone 10 mg tablet 10 mg PO DIRECTED Qty: 30 0RF Rx Instructions: Four tablets daily for 3 days, 3 tablets daily for 3 days, 2 tablets daily for 3 days, 1 tablet daily for 3 days. Humira Pen 40 mg/0.8 mL pen injector kit 0.4 mg SUBCUT Patient Comments: [NO ORIGINAL SIG] Referrals: ProviderChristina [Primary Care Provider, Family Practice] Stand Alone Forms: Patient Portal/API
--- NOTE | 2025-02-23 16:42 | DI.CT.S_ITS ---
PROCEDURE: CT ABDOMEN PELVIS W CON INDICATIONS: LLQ pain, hx psoriatic arthritis. TECHNIQUE: After the administration of intravenous contrast, axial sections acquired from the lung bases to the pubic symphysis. Coronal and sagittal reformats were performed. For radiation dose reduction, the following was used: automated exposure control, adjustment of mA and/or kV according to patient size. COMPARISON: None. FINDINGS: Image quality: Diagnostic. Lower Chest: No significant findings. ABDOMEN: Liver: No solid mass. Gallbladder: No radiopaque gallstones or wall thickening. Biliary ducts: No biliary dilation. Pancreas: No ductal dilation. Spleen: Size is within normal limits. Adrenal Glands: No adrenal nodules. Kidneys and Ureters: No hydronephrosis. No solid mass. No complex renal cystic lesion which requires follow up. Stomach and Bowel: Bowel wall thickening and pericolonic inflammatory change noted involving the mid left colon with several diverticuli consistent with acute diverticulitis. No organized abscess or free air. No bowel obstruction. Peritoneum: No abnormal intraperitoneal fluid. No free air. Ventral Wall: No significant ventral hernia. Abdominal Nodes: No retroperitoneal or mesenteric adenopathy by size criteria. Vessels: Aorta and inferior vena cava are normal in size. PELVIS: Pelvic Organs: Unremarkable. Bladder: No bladder wall thickening, accounting for underdistention. Pelvic Nodes: No enlarged lymph nodes. Miscellaneous: No inguinal hernias are seen. Bones: No aggressive osseous abnormality. IMPRESSION: Left colon acute diverticulitis. No organized abscess, free air or bowel obstruction Approved by: Magdy Aguayo M.D. on 02/23/2025 at 16:54
[2025-02-23] MEDS: AMOXICILLIN/CLAV 875/125 MG 1 TAB PO (18:20)
== END 2025-02-23 18:27 | disposition home or self-care (01) ==
PROVIDERS: Emergency Provider Emergency Medicine; Family Provider Student in an Organized Health Care Education/Training Program
DX: K57.92 Diverticulitis of intestine, part unspecified, without perforation or abscess without bleeding (principal)
CPT/HCPCS: 36415; 74177; 80053; 81003; 83690; 85025; 99283; 99284; Q9967

== ENCOUNTER → 2025-03-06 10:21 | Outpatient (CLI) | payer OTHER, SELFPAY ==
--- NOTE | 2025-03-06 19:31 | DI.NM.S_ITS ---
DATE OF SERVICE: 03/06/2025 PROCEDURE: Exercise stress test. INDICATIONS: Palpitation. CARDIAC STRESS: The patient underwent exercise stress test under the supervision of an attending staff. He walked on Santhosh protocol for 13 minutes and 1 second, achieved maximum heart rate of 189, which was 107% of target heart rate. Normal blood pressure response. Resting blood pressure 120/80 and peak blood pressure 190/88 mmHg. ANGI -11%. 14.8 METS of workload. Baseline rhythm sinus. Nonspecific ST-T changes. During stress, no convincing ischemic changes. Occasional PVCs. Normal recovery. No chest pain. No complex arrhythmias. CONCLUSION: Exercise test is negative for inducible ischemia. Normal hemodynamic response. Good exercise tolerance. No significant arrhythmias. No chest pain or anginal symptoms. Overall, low-risk exercise stress test. Evert Wright - PABLO/kyrie/VINCE doc#: [id number]/job#: [id number] dd: 03/06/2025 12:27:00 dt: 03/06/2025 19:24:00 DICTATING /COPIES TO: Sravani Hand MD COPIES MNE: MARIZOL;
== END ==
LOC: NUCM 10:21
PROVIDERS: Family Provider Student in an Organized Health Care Education/Training Program
DX: R00.2 Palpitations (principal)
CPT/HCPCS: 93017